=== PATIENT | female | born 1990 | race Caucasian/White ===

== ENCOUNTER 2021-07-23 00:03 | Observation (INO) ==
[2021-07-23] MEDS ORDERED: AMPICILLIN/SULBACTAM SOD 3,000 MG in 0.9 % SODIUM CHLORIDE 100 ML IV STA (01:37)
[2021-07-23] MEDS ORDERED: MoRPHine SULFATE 4 MG/ML 1 ML CARP\\VIAL IV PRN (01:39)
[2021-07-23] MEDS ORDERED: ONDANSETRON INJ 2 MG/ML 2 ML VIAL IV STA (01:39)
[2021-07-23] MEDS ORDERED: SODIUM CHLORIDE 0.9% 1000ML 1,000 ML IV SCH (01:45)
[2021-07-23 02:32] LABS: Basophils # (auto) 0.03 K/uL (0-0.2); Basophils % (auto) 0.2 %; Eosinophils # (auto) 0.43 K/uL (0-0.5); Eosinophils % (auto) 2.7 %; Hematocrit (blood only) 33.9 % (37-47); Hemoglobin 11.5 g/dL (12.0-16.0); Immature Granulocytes # (auto) 0.05 K/uL (0.00-0.02); Immature Granulocytes % (auto) 0.3 %; Lymphocytes # (auto) 2.97 K/uL (1.2-3.4); Lymphocytes % (auto) 18.6 %; Mean Corpuscular Hgb Conc 33.9 g/dL (32-36); Mean Corpuscular Volume 94.4 fL (80-100); Mean Platelet Volume 9.8 fL (7.4-10.4); Monocytes # (auto) 1.63 K/uL (0.11-0.59); Monocytes % (auto) 10.2 %; Neutrophils # (auto) 10.84 K/uL (1.4-6.5); Platelet Count 364 K/uL (130-400); RDW Coefficient of Variation 13.3 % (11.5-14.5); RDW Standard Deviation 46.1 fL (36.4-46.3); Red Blood Count 3.59 M/uL (4.2-5.4); White Blood Count 15.95 K/uL (4.8-10.8)
[2021-07-23 02:48] LABS: Pregnancy Test, Serum Negative (Negative)
[2021-07-23 03:08] LABS: Albumin Globulin Ratio 0.9 (0.9-2); Albumin Level 4.2 gm/dl (3.4-5.0); BUN Creatinine Ratio 9.3 (10-20); Bilirubin,Total 0.3 mg/dl (0.2-1); C Reactive Protein 2.18 mg/dl (0-0.29); Calcium 9.9 mg/dl (8.5-10.1); Creatinine Clr Calc Pharmacy 100.9 ml/min; Est GFR (African American) 120.9 ml/min; Est GFR (Non-African American) 104.3 ml/min; Globulin 4.9 gm/dl (2.5-4.0); Potassium 3.3 mmol/L (3.5-5.1); Total Protein 9.1 gm/dl (6.4-8.2)
[2021-07-23] MEDS ORDERED: OPTIRAY 320 100ml IV ONE (03:29)
[2021-07-23 05:21] LABS: Magnesium 2.2 mg/dl (1.8-2.4)
[2021-07-23] MEDS ORDERED: POTASSIUM CHLORIDE 40 MEQ in SODIUM CHLORIDE 0.9% 1000ML 1,000 ML IV ONE (05:30)
[2021-07-23] MEDS ORDERED: KETOROLAC TROMETHAMINE 15 MG/ML VIAL IV ONE (05:33)
--- NOTE | 2021-07-23 05:33 | History & Physical Report ---
Date of Service July 23, 2021 Assessment & Plan (1) Sepsis: Plan: Secondary to deep neck space infection secondary to odontogenic infection (Duane's angina) Failed outpatient treatment anxiety/mood disorder, stable off medications chronic anemia, hemoglobin at baseline chronic pain/drug dependence as per records on Subutex ongoing tobacco abuse Medical telemetry CS, Unasyn Watch out for airway obstruction. Oral maxillofacial surgery consultation Re: Duane's angina (ER provider already in touch with Dr. Ramos.) N.p.o. until patient seen by OMFS. Nicotine patch DVT prophylaxis. SCDs RE possible procedure Recommend pharmacologic anticoagulation with Lovenox 40 mg subcutaneous daily once bleeding risk is deemed to be minimal and negligible pending OMFS evaluation. Full code Patient sister requesting updates from providers. Ms. Glynn Alvarado, contact #[phone]. Text document was generated using [employer] voice recognition software. It may contain grammatical or spelling errors. Kindly contact undersigned for clarification of any documentation item in question. History of Present Illness Chief Complaint: Toothache, jaw swelling Primary Care Provider: Jose Ramon Todd History obtained from patient, family, and records. Medical history significant for anxiety/mood disorder, chronic anemia (baseline hemoglobin of 11), chronic pain/drug dependence as per records on Subutex, ongoing tobacco abuse. Last confinement February 2019 under Gynecology service for missed status post suction D&C. 2 months ago, patient referred by family dentist to oral surgeon from [facility] to extract all her carious teeth. Patient subsequently completed 1 week antibiotic course. 3 weeks ago, patient noted toothache on the left jaw. Outpatient x-ray done last week showed tooth remnant on the left jaw as per patient. Patient subsequently noted progressive jaw and chin swelling leading to difficulty in opening the mouth and swallowing. Patient denies headache, chest pain, S OB. No fever, some chills. Patient prescribed amoxicillin by family dentist and told to schedule an appointment with oral surgeon from [facility]. Patient brought to ER by sister for worsening symptoms. IV Unasyn given at the ER for odontogenic infection. Medical History as above Surgical History : D&C, nose reconstruction, bunion surgery, dental surgery Family History : Leukemia, DM, prostate cancer Personal/Social history : 1 pack daily, no EtOH intake, currently unemployed, past history of crystal meth use as per records Allergies Allergy/AdvReac Type Severity Reaction Status Date / Time naloxone Allergy Severe Anaphylaxis Verified 07/23/21 01:33 latex Allergy Mild Rash Verified 07/23/21 01:33 Home Medications Medication Instructions Recorded Confirmed Type buprenorphine HCl 8 mg sublingual 8 mg SUBLINGUAL BID 03/02/19 07/23/21 History tablet acetaminophen 325 mg tablet 325 mg PO Q6H PRN 03/04/19 07/23/21 History (Tylenol) ibuprofen 200 mg tablet (Advil) 200 mg PO QID PRN 03/04/19 07/23/21 History amoxicillin 500 mg capsule 500 mg PO TID 07/23/21 07/23/21 History Past Med/Surg History Medical History Anemia Anxiety and depression Bipolar disorder GERD (gastroesophageal reflux disease) History of drug dependence On Subutex currently. Pt reported h/o abuse of cocaine, xanax, marijuana, heroin. now sober x 1 year History of seizures last seizure at age 20 - believes r/t medications - does not follow w/ neuro Hypoglycemia Missed OCD (obsessive compulsive disorder) Osteoarthritis Surgical History History of bunionectomy Rt History of mandibular surgery History of tonsillectomy History of wisdom tooth extraction Status post correction of deviated nasal septum Status post excision of lipoma as a child - scalp Family History Mother Family history of diabetes mellitus Grandmother (Maternal) Family history of diabetes mellitus Grandfather (Maternal) Family history of diabetes mellitus Social History Smoking Status: Current every day smoker Tobacco Type: Cigarettes Cigarettes Per Day: 1ppd; Second Hand Exposure: Yes; Hx Alcohol Use: No Hx Substance Use: No Preferred Language: Hungarian Communication Ability: Effective Sheet Sewer Required: No Beliefs That Will Affect Care: None Current Living Situation: Alone Current Living Situation Comment: lives w/ fiance Feels Safe at Home: Yes Safety Concerns: Feels Safe At This Time Assistive Devices: Contacts Review of Systems Review of Systems: As per HPI, all 10 systems reviewed, all other ROS negative Physical Exam Physical Exam: GENERAL: uncomfortable, looks older than stated age, no respiratory distress SKIN: Pallor , warm HEENT: Pale palpebral conjunctivae, no ptosis, trismus, sublingual swelling NECK : Supple, , tender induration submandibular/submental area CHEST : CTA, no tenderness HEART : RRR, crisp systolic murmur best heard on left sternal border ABDOMEN: no distention, nontender EXTREMITIES : No LE swelling/tenderness, no other conspicuous deformities noted NEUROLOGIC : Coherent, no facial asymmetry, no other gross focality Results & Data Results & Data ([facility]) Vital Signs (Past 12 Hours) Vital Signs Temp Pulse Resp BP Pulse Ox 07/23/21 04:30 88 13 114/76 98 07/23/21 04:00 86 28 H 121/79 97 07/23/21 03:47 84 123/84 98 07/23/21 03:00 75 16 121/91 99 07/23/21 02:30 93 H 18 127/80 98 07/23/21 01:30 96 H 18 129/88 98 07/23/21 01:13 102 H 18 169/109 H 99 07/23/21 00:09 36.6 C 106 H 18 154/88 H 100 Laboratory Results Laboratory Results WBC 15.95 K/uL (4.8-10.8) H 07/23/21 01:52 RBC 3.59 M/uL (4.2-5.4) L 07/23/21 01:52 Hgb 11.5 g/dL (12.0-16.0) L 07/23/21 01:52 Hct 33.9 % (37-47) L 07/23/21 01:52 MCV 94.4 fL (80-100) 07/23/21 01:52 MCH 32.0 pg (25-34) 07/23/21 01:52 MCHC 33.9 g/dL (32-36) 07/23/21 01:52 RDW Std Deviation 46.1 fL (36.4-46.3) 07/23/21 01:52 RDW Coeff of Lizeth 13.3 % (11.5-14.5) 07/23/21 01:52 Plt Count 364 K/uL (130-400) 07/23/21 01:52 MPV 9.8 fL (7.4-10.4) 07/23/21 01:52 Immature Gran % (Auto) 0.3 % 07/23/21 01:52 Neut % (Auto) 68.0 % 07/23/21 01:52 Lymph % (Auto) 18.6 % 07/23/21 01:52 [place] % (Auto) 10.2 % 07/23/21 01:52 Eos % (Auto) 2.7 % 07/23/21 01:52 Baso % (Auto) 0.2 % 07/23/21 01:52 Neut # (Auto) 10.84 K/uL (1.4-6.5) H 07/23/21 01:52 Lymph # (Auto) 2.97 K/uL (1.2-3.4) 07/23/21 01:52 Lenoir # (Auto) 1.63 K/uL (0.11-0.59) H 07/23/21 01:52 Eos # (Auto) 0.43 K/uL (0-0.5) 07/23/21 01:52 Baso # (Auto) 0.03 K/uL (0-0.2) 07/23/21 01:52 Immature Gran # (Auto) 0.05 K/uL (0.00-0.02) H 07/23/21 01:52 ESR 59 mm/hr (0-20) H 07/23/21 01:52 Sodium 137 mmol/L (136-145) 07/23/21 01:52 Potassium 3.3 mmol/L (3.5-5.1) L 07/23/21 01:52 Chloride 103 mmol/L (98-107) 07/23/21 01:52 Carbon Dioxide 27 mmol/L (21-32) 07/23/21 01:52 Anion Gap 7.0 (3-11) 07/23/21 01:52 BUN 7 mg/dl (7-18) 07/23/21 01:52 Creatinine 0.77 mg/dl (0.6-1.2) 07/23/21 01:52 Est Cr Clr Drug Dosing 100.9 ml/min 07/23/21 01:52 Est GFR ( Amer) 120.9 ml/min 07/23/21 01:52 Est GFR (Non-Af Amer) 104.3 ml/min 07/23/21 01:52 BUN/Creatinine Ratio 9.3 (10-20) L 07/23/21 01:52 Glucose 98 mg/dl (70-99) 07/23/21 01:52 Lactate 0.6 mmol/L (0.4-2.0) 07/23/21 03:46 Calcium 9.9 mg/dl (8.5-10.1) 07/23/21 01:52 Magnesium 2.2 mg/dl (1.8-2.4) 07/23/21 01:52 Total Bilirubin 0.3 mg/dl (0.2-1) 07/23/21 01:52 AST 15 U/L (15-37) 07/23/21 01:52 ALT 16 U/L (12-78) 07/23/21 01:52 Alkaline Phosphatase 93 U/L (45-117) 07/23/21 01:52 C-Reactive Protein 2.18 mg/dl (0-0.29) H 07/23/21 01:52 Total Protein 9.1 gm/dl (6.4-8.2) H 07/23/21 01:52 Albumin 4.2 gm/dl (3.4-5.0) 07/23/21 01:52 Globulin 4.9 gm/dl (2.5-4.0) H 07/23/21 01:52 Albumin/Globulin Ratio 0.9 (0.9-2) 07/23/21 01:52 HCG, Qual Negative (Negative) 07/23/21 01:52 COVID-19 Eval Order Covid19 at [facility] 07/23/21 01:55 SARS-CoV-2 (PCR) NEGATIVE (Negative) 07/23/21 01:55 Diagnostic Findings Soft tissue neck CT initial read: Complex, septated peripheral enhancing fluid in the submental space extending into the floor the neck, likelyloculated abscess. Diffuse superficial edema around the mandible and inferiorly, compatible with Anjana dwig angina. Bilateral mildlyprominent cervical lymph nodes, presumed reactive. No other abscess.
[2021-07-23] MEDS ORDERED: KETOROLAC TROMETHAMINE 15 MG/ML VIAL IV PRN (05:38)
[2021-07-23] MEDS: NICOTINE 21 MG/24 HR TDSY TD SCH (05:54)
[2021-07-23] MEDS ORDERED: ACETAMINOPHEN 1000 MG/100 ML IV IV PRN (06:10)
[2021-07-23] MEDS ORDERED: PROMETHAZINE HCL 12.5 MG in SODIUM CHLORIDE 0.9% 50 ML IV PRN ×2 (07:03→12:16)
[2021-07-23] MEDS ORDERED: AMPICILLIN/SULBACTAM CONSULT ACTIVE PRN (07:39)
--- NOTE | 2021-07-23 08:01 | CT Scan Report ---
CT SCAN OF THE NECK WITH IV CONTRAST CLINICAL HISTORY: Facial/dental infection. Reported history of numerous recent dental extractions. COMPARISON STUDY: No priors. TECHNIQUE: Following the IV administration of 93 cc of Optiray 320, CT scan of the soft tissues of th e neck was performed from the skull base to the upper chest. Images are reviewed in the axial, sagitt al, and coronal planes. IV contrast was administered without complication. A dose lowering techniqu e was utilized adhering to the principles of ALARA. CT DOSE: 371.28 mGy.cm FINDINGS: Soft tissues: There is diffuse soft tissue edema is seen overlying the mandible extending the submand ibular region. There is a peripherally enhancing multiloculated fluid collection in the submental reg ion on image #273 which measures approximately 2.5 x 3 x 3 cm. A more inferiorly located loculation o n the right on image #268 measures 1.7 x 0.6 cm. Mild infiltration is seen throughout the soft tissue s of the neck bilaterally extending to the level of the thoracic inlet. There is also infiltration of the sublingual soft tissues, left greater than right. Piercings of the tongue and right nostril are noted. Pharynx: The patient is edentulous. The pharyngeal soft tissues are grossly unremarkable. The pharyng eal airway is patent. There is no evidence of mass lesion. The vocal cords are symmetric. The parapha ryngeal fat is well maintained. The prevertebral/retropharyngeal soft tissues are within normal limit s. The epiglottis is normal. Lymphadenopathy: There are numerous mildly enlarged cervical and submandibular lymph nodes. A right s ubmandibular node on image #247 measures 1.8 x 1.1 cm. There are shotty supraclavicular and left subp ectoral lymph nodes. Thyroid: The thyroid gland is mildly enlarged and heterogeneous. Salivary glands: The parotid and submandibular glands are within normal limits. Brain parenchyma: The visualized brain parenchyma at the skull base is normal in appearance. Vascular structures: The carotid arteries and jugular veins are patent bilaterally. Skeletal structures: Imaged portions of the calvarium at the skull base are within normal limits. The cervical spine appears intact. There is periostitis seen involving the undersurface of the left ante rior mandible on axial image #261. Orbits: The bony orbits are intact. Orbital contents are normal as imaged. Sinuses and mastoids: Postoperative change is seen involving the maxillary antra. There is mild mucos al thickening with air-fluid level seen in the left maxillary antrum. Trace mucosal thickening is see n within the right maxillary antrum and ethmoid sinuses. The mastoid air cells are well pneumatized. Lung apices: Emphysematous change is noted. Mild patchy groundglass change is seen at the apices. IMPRESSION: 1. Extensive superficial and deep soft tissue edema is seen overlying the mandible extending into the submental/submandibular space and throughout the neck. This is typical for cellulitis. 2. There is a complex multiloculated an peripherally enhancing fluid collection centered in the subme ntal space which extends to the floor of the mouth and into the neck. This is typical for abscess. 3. There is diffuse edema around this collection which involves the submental and sublingual space. L udwig's angina is not excluded. 4. There is periostitis seen involving the undersurface of the left anterior mandible. This is locate d adjacent to the inflammatory process/infection, and osteomyelitis is not excluded. 5. The airway appears patent. 6. Numerous mildly enlarged lymph nodes throughout the neck and upper chest are likely reactive. Foll ow-up to resolution is recommended. 7. The jugular veins are patent. 8. Emphysema. ACT 112: Negative or not required by law. Electronically signed by: Titus Marquez M.D. 07/23/2021 8:00 AM
[2021-07-23] MEDS ORDERED: CONSULT PHARMACY SCH (09:00)
[2021-07-23] MEDS: IBUPROFEN 200 MG TAB PO PRN ×2 (09:41→20:57)
[2021-07-23] MEDS: buprenorphine HCL 8 MG SUBL SL SCH ×2 (09:41→20:55)
[2021-07-23] MEDS: AMPICILLIN/SULBACTAM SOD 3,000 MG in 0.9 % SODIUM CHLORIDE 100 ML IV SCH ×3 (09:42→20:55)
--- NOTE | 2021-07-23 10:50 | Oral/Maxillofacial Consult ---
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 Ackerman in April 2021--having problems since. She called Dr Ackerman and was told they can`t see her until later in the week Oral Exam: Finding--irregular lower ridge from recent extraction. Had swelling lower left side she feels a loose bone in this area. There is subperiosteal swelling in the lateral left lower ridge area. Soft tissue: swelling floor of the mouth, chin, lips and face tongue, hard/soft palate All WNL Generalized edema --posterior pharyngeal area TMJ exam: no able to determine due to pain upon movement of the jaw Head/Neck exam: Swollen submental area, FROM, Able to extend and flex neck w/o difficulty, no masses, no abnormalities, no airway issues, no evidence of sleep apnea. Treatment Plan: Set up with general anesthesia in hospital due to complexity of the procedure Extraoral I&D submental area and floor of the mouth Debridement of the left posterior lower alveolar ridge for removal of necrotic bone I reviewed the treatment plan and consent with the patient. Understanding was expressed. Time was given for questions regarding the surgery, risks and post op care. Discussed alternative to treatment--procedure as planned, Do not do surgery Risks discussed: Bleeding,Pain,swelling,infection, delayed healing, nerve injury to face,lips,tongue,chin area which could be permanent (rare). Possible osteomyelitics TMJ, jaw stiffness, ear pain (referred). 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 Follow up care reviewed: rinsing, follow up care with Dr Ramos. diet=[id number] dental. Discussed activity level, driving/work while on Rx pain Meds. Surgery to be set today at 11:30 in the OR Allergies Allergy/AdvReac Type Severity Reaction Status Date / Time naloxone Allergy Severe Anaphylaxis Verified 07/23/21 01:33 latex Allergy Mild Rash Verified 07/23/21 01:33 Home Medications Medication Instructions Recorded Confirmed Type buprenorphine HCl 8 mg sublingual 8 mg SUBLINGUAL BID 03/02/19 07/23/21 History tablet acetaminophen 325 mg tablet 325 mg PO Q6H PRN 03/04/19 07/23/21 History (Tylenol) ibuprofen 200 mg tablet (Advil) 200 mg PO QID PRN 03/04/19 07/23/21 History amoxicillin 500 mg capsule 500 mg PO TID 07/23/21 07/23/21 History Patient History Medical History (Updated 07/23/21 @ 10:48 by David Ramos DMD) Anemia Anxiety and depression Bipolar disorder GERD (gastroesophageal reflux disease) History of drug dependence On Subutex currently. Pt reported h/o abuse of cocaine, xanax, marijuana, heroin. now sober x 1 year History of seizures last seizure at age 20 - believes r/t medications - does not follow w/ neuro Hypoglycemia Missed OCD (obsessive compulsive disorder) Osteoarthritis Surgical History History of bunionectomy Rt History of mandibular surgery History of tonsillectomy History of wisdom tooth extraction Status post correction of deviated nasal septum Status post excision of lipoma as a child - scalp Family History Mother Family history of diabetes mellitus Grandmother (Maternal) Family history of diabetes mellitus Grandfather (Maternal) Family history of diabetes mellitus Social History Smoking Status: Current every day smoker Tobacco Type: Cigarettes Cigarettes Per Day: 1ppd; Second Hand Exposure: Yes; Hx Alcohol Use: No Hx Substance Use: No Preferred Language: Palauan Communication Ability: Effective Manager Water Wastewater Required: No Beliefs That Will Affect Care: None Current Living Situation: Alone Current Living Situation Comment: lives w/ fiance Feels Safe at Home: Yes Safety Concerns: Feels Safe At This Time Assistive Devices: Contacts Results & Data ([facility]) Vital Signs (Past 12 Hours) Vital Signs Temp Pulse Pulse Resp BP BP Pulse Ox 07/23/21 07:59 37 C 78 18 109/72 97 07/23/21 07:58 71 07/23/21 07:42 37.0 C 78 18 109/72 97 07/23/21 06:32 117/65 97 07/23/21 04:30 88 13 114/76 98 07/23/21 04:00 86 28 H 121/79 97 07/23/21 03:47 84 123/84 98 07/23/21 03:00 75 16 121/91 99 07/23/21 02:30 93 H 18 127/80 98 07/23/21 01:30 96 H 18 129/88 98 07/23/21 01:13 102 H 18 169/109 H 99 07/23/21 00:09 36.6 C 106 H 18 154/88 H 100 PG Care Time/CCT Total # of Minutes Spent Total Time Spent with Patient: Total time spent is greater than 50% in coordination of care (as documented) at patient's floor/unit and/or counseling patient: Coding Level of Care Code 44307 Office/OBS Consult Lvl 3 Diagnoses Duane's angina syndrome K12.2 Osteomyelitis of mandible M27.2 Sepsis A41.9 History of drug dependence F19.21
[2021-07-23] MEDS ORDERED: LIDOCAINE 2% 2 ML VIAL/AMP(20MG/ML) INFIL ONE (10:51)
[2021-07-23] MEDS ORDERED: MIDAZOLAM HCL 1 MG/ML 2ML VIAL ONE (10:51)
[2021-07-23] MEDS ORDERED: PROPOFOL IV EMULSION 10 MG/ML 20 ML VIAL IV ONE (10:51)
[2021-07-23] MEDS ORDERED: fentaNYL citrate 100 MCG/2 ML VIAL ONE ×2 (10:51→13:01)
[2021-07-23] MEDS ORDERED: DEXAMETHASONE SOD INJ 4 MG/ML VIAL ONE (10:51)
[2021-07-23] MEDS ORDERED: ONDANSETRON INJ 2 MG/ML 2 ML VIAL ONE (10:51)
--- NOTE | 2021-07-23 11:26 | Anesthesiology Consultation ---
Date of Service July 23, 2021 Assessment & Plan Chart Review Chart Review: Acceptable Risk for Surgery and Patient NOT seen in Pre Admission Testing Consults Requested none ASA ASA3 Proposed Anesthesia Anesthesia Type: General Risk / Benefits Reviewed With: PT / POA / Parent / Guardian, Accepts Plan and Informed Consent Obtained Additional Comments: covid test negative History Surgery Operation Date: 07/23/21 10:25 Proposed Procedures p Incision and Drainage Mouth Abcess, Debridement of Necrotic bone - David Ramos, DMD Height/Weight Height: 5 ft 6 in Weight: 63.503 kg Allergies Allergy/AdvReac Type Severity Reaction Status Date / Time naloxone Allergy Severe Anaphylaxis Verified 07/23/21 01:33 latex Allergy Mild Rash Verified 07/23/21 01:33 Medications Home Medications Medication Instructions Recorded Confirmed Last Taken buprenorphine HCl 8 mg sublingual 8 mg SUBLINGUAL BID 03/02/19 07/23/21 07/22/21 tablet acetaminophen 325 mg tablet 325 mg PO Q6H PRN 03/04/19 07/23/21 Unknown (Tylenol) ibuprofen 200 mg tablet (Advil) 200 mg PO QID PRN 03/04/19 07/23/21 Unknown amoxicillin 500 mg capsule 500 mg PO TID 07/23/21 07/23/21 Unknown Active Medications Generic Name Dose Route Start Last Admin Trade Name Freq PRN Reason Stop Dose Admin Acetaminophen 1,000 mg 07/23/21 06:10 07/23/21 07:34 Acetaminophen 1000 Mg/100 Ml Iv IV 07/26/21 06:09 1,000 mg Q8H PRN Administration pain/fever Buprenorphine HCl 8 mg 07/23/21 09:00 07/23/21 09:41 Buprenorphine Hcl 8 Mg Subl SL 08/22/21 08:59 8 mg BID LAKISHA Administration Ampicillin Sodium/Sulbactam 108 mls @ 216 mls/hr 07/23/21 08:00 07/23/21 10:14 Sodium 3,000 mg/ Sodium IV 08/02/21 01:59 Infused Chloride Q6H LAKISHA Infusion Ibuprofen 200 mg 07/23/21 07:03 07/23/21 09:41 Ibuprofen 200 Mg Tab PO 08/22/21 07:02 200 mg QID PRN Administration Pain Nicotine 21 mg 07/23/21 05:45 07/23/21 05:54 Nicotine 21 Mg/24 Hr Tdsy TD 08/22/21 05:44 21 mg QAM LAKISHA Administration Past Medical History Medical History Anemia Anxiety and depression Bipolar disorder GERD (gastroesophageal reflux disease) History of drug dependence On Subutex currently. Pt reported h/o abuse of cocaine, xanax, marijuana, heroin. now sober x 1 year History of seizures last seizure at age 20 - believes r/t medications - does not follow w/ neuro Hypoglycemia Missed OCD (obsessive compulsive disorder) Osteoarthritis Exercise / Class Metabolic Activity II 4-5 Yardwork/Stairs/Walk up hill Past Family History Family History Mother Family history of diabetes mellitus Grandmother (Maternal) Family history of diabetes mellitus Grandfather (Maternal) Family history of diabetes mellitus Past Surgical History Surgical History History of bunionectomy Rt History of mandibular surgery History of tonsillectomy History of wisdom tooth extraction Status post correction of deviated nasal septum Status post excision of lipoma as a child - scalp Past Anesthesia History No Hx of Anesthesia Complications and No Family Hx of Anesthesia Complications History of PONV No Hx of PONV and No Hx of Motion Sickness Social History Smoking Status: Current every day smoker tobacco type: cigarettes Smoking cigarettes per day: 1ppd Hx Alcohol Use: No Hx Substance Use: No substance use type: former substance user Physical Exam Vital Signs Last Vital Signs Temp 37 C 07/23/21 07:59 Pulse 78 07/23/21 07:59 Resp 18 07/23/21 07:59 BP 109/72 07/23/21 07:59 Pulse Ox 97 07/23/21 07:59 Testing Laboratory Results 07/23/21 01:52 07/23/21 01:52
[2021-07-23] MEDS ORDERED: TRIAMCINOLONE ACET 0.1% OINT 15 GM TUBE ONE (11:35)
[2021-07-23] MEDS ORDERED: CHLORHEXIDINE GLUCONATE 0.12% 480 ML ONE (11:35)
[2021-07-23] MEDS ORDERED: BUPIVACAINE/EPINEPHRINE 0.5% 1:200,000 1.8 ML CARP ONE (11:35)
[2021-07-23] MEDS ORDERED: ATROPINE SULFATE 0.1 MG/ML 10ML SYR IV PRN (12:16)
[2021-07-23] MEDS ORDERED: ONDANSETRON INJ 2 MG/ML 2 ML VIAL IV PRN (12:16)
[2021-07-23] MEDS ORDERED: ePHEDrine sulfate 50 MG/ML AMP IV PRN (12:16)
[2021-07-23] MEDS ORDERED: fentaNYL citrate 100 MCG/2 ML VIAL IV PRN (12:16)
[2021-07-23] MEDS ORDERED: FLUMAZENIL 0.1 MG/1 ML 10 ML VIAL IV PRN (12:16)
[2021-07-23] MEDS ORDERED: KETAMINE 50 MG/5 ML SYRINGE ONE (12:50)
--- NOTE | 2021-07-23 13:23 | Communication Note ---
Date of Service: July 23, 2021 Patient was seen and examined this morning. Continues to have a persistent jaw discomfort. Remains afebrile. Leukocytosis noted today. Hemodynamically doing okay. Awaiting OMFS input. Plan to go to the OR later today. Denies feeling SOB, chest pain or wheezing. Will continue with Unasyn.
[2021-07-23] MEDS ORDERED: HYDROmorphone INJ 0.5 MG/0.5 ML SYR IV PRN ×2 (13:38→14:15)
[2021-07-23] MEDS ORDERED: HYDROmorphone INJ 1 MG/ML SYRINGE ONE ×2 (13:39→14:07)
--- NOTE | 2021-07-23 13:51 | Operative Report ---
PG Post Operative Report Pre & Post Diagnosis Operation Date: 07/23/21 10:25 Pre-Op Diagnosis: Acute facial swelling Post-Op Diagnosis: Submental infection, Nectrotic bone left jaw I identified the patient and participated in the time-out.: Yes Procedure Operation Date: 07/23/21 10:25 Actual Procedures p Incision and Drainage Submental Infection, Debridement of Necrotic Bone Left Jaw(Not Applicable) - David Ramos DMD Surgeon David Ramos DMD Broadband Technician none Estimated Blood Loss 10 Findings Consistent with Post-Op Diagnosis infected submandibular and submental area left side Specimens necrotic bone left lower jaw I&D chin area Drains Eren Smiley Anesthesia Type General Complications none Indications acute facila infection Description of Procedure Actual Procedures p Incision and Drainage Submental and Submandibular Abscess; Removal of loose necrotic bone left lower jaw ridge (Not Applicable) - David Ramos DMD Once cleared for surgery general anesthesia was achieved, the eyes were protected by the anesthesia dept criteria. A time out was take for patient ID, antibiotics, equipment and position verification once all agreed the procedure began. Local anesthesia using Marcaine with a vasoconstrictor ( 1.8 ml per site) given into left inferior alveolar nerve A throat pack was placed after the oral cavity was irrigated with saline. Once a surgical level of anesthesia was obtained and the local anesthesia was given time for the blocks the surgery was started. I turned my attention to the infection which was located in the left floor of the mouth and submental area. The tongue was elevated and there was also swelling associated with the left alveolar ridge ( see CT scan report) Incision and Drainage Using a 15 blade an incision was made medial to the alveolar ridge and lateral to the duct of the submandibular gland. Once the incision was made a lot of pus extruded from the site. This drainage was cultured for anaerobic and aerobic bacteria. A curved hemostat was carefully placed into the infected space along the medial side of the lower jaw and into the submental space. Some further drainage was now allowed to escape. I palpated the chin and submental area and in the must fluctuant site a 15 blade was used to establish drainage. About 10 cc of pus was expressed. The small hemostat was placed and opened a few times to break up any pockets of pus. For the most part the tissues were very hard w/o pus. The area was irrigated with at least 100 ml of NS solution. I large Wallback was placed from the left submandibular/floor of mouth site and exited in the chin midline incision. The drain was sutured with a 3-0 nylon. I now turned my attention to remove the # 28 tooth. Debridement of left necrotic and irregular ridge form left side. The full thick Muco-periosteal flap was made on the on the irregular ridge from the retromolar pad to the lower midline. The flap was reflected very wide to expose the the subperiosteal space and sublingual space. The bone was grossly irregular with sharp bone projection and chronically infected tissue. The rogue was used to remove bone, The file was used to smooth the bone, the mental nerve was intact, there was a large amount of granulation tissues that was removed I irrigated the site and closed the incision with a 2-0 chromic. Once the case was completed I inspected the sites to insure all bleeding was controlled. I removed the throat pack and suctioned the throat. A left gauze pressure dressings were placed. I chin dressing was placed All instrument and sponge count was correct. the patient was allowed to awake from the anesthesia. Once full awake the anesthesia tube was removed and the patient was taken to the recovery room with all vital sign stable. The patient tolerated the surgery very well. I will follow the patient in my office, Rx and instructions will be given upon discharge. drain to be removed based on response and functioning. I attest to the content of the Intraoperative Record and any orders documented therein. Any exceptions are noted below.
--- NOTE | 2021-07-23 14:27 | Anesthesiology Progress Note ---
Date of Service July 23, 2021 Anesthesia Post Procedure Vital Signs Vital Signs: Temp Pulse Pulse Pulse Pulse Resp BP 07/23/21 14:20 83 12 07/23/21 14:10 80 12 07/23/21 14:00 100 H 13 07/23/21 13:50 116 H 22 07/23/21 13:40 127 H 20 07/23/21 13:32 37.0 C 100 H 18 07/23/21 11:55 36.8 C 75 20 07/23/21 11:42 36.7 C 79 16 07/23/21 07:59 37 C 78 18 07/23/21 07:58 71 07/23/21 07:42 37.0 C 78 18 07/23/21 06:32 117/65 07/23/21 04:30 88 13 114/76 07/23/21 04:00 86 28 H 121/79 07/23/21 03:47 84 123/84 07/23/21 03:00 75 16 121/91 07/23/21 02:30 93 H 18 127/80 07/23/21 01:30 96 H 18 129/88 07/23/21 01:13 102 H 18 169/109 H 07/23/21 00:09 36.6 C 106 H 18 154/88 H BP Pulse Ox 07/23/21 14:20 131/88 95 07/23/21 14:10 130/84 98 07/23/21 14:00 138/93 100 07/23/21 13:50 156/98 H 91 07/23/21 13:40 176/106 H 100 07/23/21 13:32 172/120 H 100 07/23/21 11:55 134/82 100 07/23/21 11:42 120/81 99 07/23/21 07:59 109/72 97 07/23/21 07:58 07/23/21 07:42 109/72 97 07/23/21 06:32 97 07/23/21 04:30 98 07/23/21 04:00 97 07/23/21 03:47 98 07/23/21 03:00 99 07/23/21 02:30 98 07/23/21 01:30 98 07/23/21 01:13 99 07/23/21 00:09 100 Pain Intensity Jaw: Pain Intensity: 7 Transfer of Care Handoff Completed per policy Notes Mental Status: alert / awake / arousable Patient Amnestic to Procedure: Yes Nausea / Vomiting: adequately controlled Pain: adequately controlled Airway Patency, RR, SpO2: stable & adequate BP & HR: stable & adequate Hydration State: stable & adequate Anesthetic Complications: no major complications apparent
[2021-07-23] MEDS: POTASSIUM CHLORIDE 40 MEQ in D5W AND NSS 1,000 ML IV SCH (15:24)
--- NOTE | 2021-07-23 18:53 | Emergency Department Note ---
ED Visit Note Physician Insulation Mechanic Supervision Note: I interviewed and examined the patient. Discussed with Anand Daily PA-C and agree with findings and plan as documented in the note. The patient was evaluated and noted to have significant swelling of the lower mandible and submental space. She is tender with mild erythema and induration. The subglottal tissue is raised. CT imaging was reviewed. Patient did receive IV analgesia, antibiotics and consultation with [facility], Dr. Ramos was placed. Patient and her family member were updated to the findings and plan. Consultation with the internal medicine service for admission was also placed. The patient agreed with the plan. Documented By: Darlene Mckeon MD .
[2021-07-23] MEDS: ACETAMINOPHEN 325 MG TAB PO PRN (18:57)
--- NOTE | 2021-07-23 21:13 | Emergency Department Note ---
History of Present Illness General Chief complaint: Dental/Oral Stated complaint: FACE SWELLED AND DRAINAGE Time Seen by Provider: 07/23/21 01:30 History of Present Illness Maximum Pain Intensity: 6 This is a 31-year-old female presenting to the emergency department for evaluation of facial pain and swelling worsening over the past 10 days. The patient had her teeth removed by Dr. Hawkins/Tyron's office in April, roughly 2 months ago. She does describe waxing and waning infection symptoms and has had difficulty getting in with their office. The patient has been off and on antibiotics for the past 2 months, and finally did see her primary care physician about a week and a half ago. She was started on amoxicillin and referred formally back to her oral surgeon's office, but has not scheduled an appointment as the office "won't see me". The patient has developed significant swelling of her face without fever. She is having difficulty eating and drinking because of the swelling. She rates the overall discomfort a 9/10. Home Medications Medication Instructions Recorded Confirmed Type buprenorphine HCl 8 mg sublingual 8 mg SUBLINGUAL BID 03/02/19 07/23/21 History tablet acetaminophen 325 mg tablet 325 mg PO Q6H PRN 03/04/19 07/23/21 History (Tylenol) ibuprofen 200 mg tablet (Advil) 200 mg PO QID PRN 03/04/19 07/23/21 History amoxicillin 500 mg capsule 500 mg PO TID 07/23/21 07/23/21 History Allergies Allergy/AdvReac Type Severity Reaction Status Date / Time naloxone Allergy Severe Anaphylaxis Verified 07/23/21 01:33 latex Allergy Mild Rash Verified 07/23/21 01:33 Past Med/Surg History Medical History Anemia Anxiety and depression Bipolar disorder GERD (gastroesophageal reflux disease) History of drug dependence On Subutex currently. Pt reported h/o abuse of cocaine, xanax, marijuana, heroin. now sober x 1 year History of seizures last seizure at age 20 - believes r/t medications - does not follow w/ neuro Hypoglycemia Missed OCD (obsessive compulsive disorder) Osteoarthritis Surgical History History of bunionectomy Rt History of mandibular surgery History of tonsillectomy History of wisdom tooth extraction Status post correction of deviated nasal septum Status post excision of lipoma as a child - scalp Family History Mother Family history of diabetes mellitus Grandmother (Maternal) Family history of diabetes mellitus Grandfather (Maternal) Family history of diabetes mellitus Social History Smoking Status: Current every day smoker Tobacco Type: Cigarettes Cigarettes Per Day: 1ppd; Second Hand Exposure: Yes; Hx Alcohol Use: No Hx Substance Use: No Preferred Language: Ethiopian Communication Ability: Effective [employer] Director Required: No Beliefs That Will Affect Care: None Current Living Situation: Alone Current Living Situation Comment: lives w/ fiance Feels Safe at Home: Yes Safety Concerns: Feels Safe At This Time Assistive Devices: Contacts Review of Systems A total of 10 systems reviewed and were otherwise negative Physical Exam Vital Signs Vital Signs - 24 hr 07/23/21 00:09 07/23/21 01:13 07/23/21 01:30 Temperature 36.6 C Temperature Source Temporal Artery Scan Pulse Rate 106 H 102 H 96 H Pulse Rate from SpO2 Sensor Respiratory Rate 18 18 18 Respiratory Effort / Characteristics Non-Labored Spontaneous Respiratory Depth Normal Respiratory Pattern Regular Blood Pressure 154/88 H 169/109 H 129/88 Blood Pressure Mean 110 129 101 Pulse Oximetry 100 99 98 Oxygen Delivery Method Room Air Sepsis Recent Fever Within 48 Hours No Sepsis New/Unexplained Change in Mental Status No Sepsis Action Taken by Nursing No Action Required 07/23/21 02:30 07/23/21 03:00 07/23/21 03:47 Temperature Temperature Source Pulse Rate 93 H 75 84 Pulse Rate from SpO2 Sensor 83 Respiratory Rate 18 16 Respiratory Effort / Characteristics Respiratory Depth Respiratory Pattern Blood Pressure 127/80 121/91 123/84 Blood Pressure Mean 95 101 97 Pulse Oximetry 98 99 98 Oxygen Delivery Method Sepsis Recent Fever Within 48 Hours Sepsis New/Unexplained Change in Mental Status Sepsis Action Taken by Nursing 07/23/21 04:00 07/23/21 04:30 Temperature Temperature Source Pulse Rate 86 88 Pulse Rate from SpO2 Sensor 86 86 Respiratory Rate 28 H 13 Respiratory Effort / Characteristics Respiratory Depth Respiratory Pattern Blood Pressure 121/79 114/76 Blood Pressure Mean 93 88 Pulse Oximetry 97 98 Oxygen Delivery Method Sepsis Recent Fever Within 48 Hours Sepsis New/Unexplained Change in Mental Status Sepsis Action Taken by Nursing VITALS: Vitals are noted on the nurse's note and reviewed by myself. Vital signs stable. GENERAL: White female who appears in moderate distress. She has profound swelling of the face inferior to the chin. MOUTH: Exam limited as patient has difficulty opening the mouth. She is handling her own secretions. Airway is patent. Tenderness under the tongue is noted. NECK: Profound edema underneath the chin identified. HEART: Regular rate and rhythm without murmurs gallops or rubs. LUNGS: Clear to auscultation bilaterally without wheezes, rales or rhonchi. No retractions or accessory muscle use. Course Administered Medications Acetaminophen (Acetaminophen 325 Mg Tab) 650 mg PO Q4H PRN PRN Reason: Pain or Fever Stop: 08/22/21 05:37 Last Admin: 07/23/21 18:57 Dose: 650 mg Documented by: [id number] Acetaminophen (Acetaminophen 1000 Mg/100 Ml Iv) 1,000 mg IV Q8H PRN PRN Reason: pain/fever Stop: 07/26/21 06:09 Last Admin: 07/23/21 07:34 Dose: 1,000 mg Documented by: [id number] Buprenorphine HCl (Buprenorphine Hcl 8 Mg Subl) 8 mg SL BID LAKISHA Stop: 08/22/21 08:59 Last Admin: 07/23/21 20:55 Dose: 8 mg Documented by: [id number] Admin: 07/23/21 09:41 Dose: 8 mg Documented by: [id number] Potassium Chloride 40 meq/ (Dextrose/Sodium Chloride) 1,020 mls @ 75 mls/hr IV .[id number] LAKISHA Stop: 08/22/21 09:59 Last Infusion: 07/23/21 16:14 Dose: 75 mls/hr Documented by: [id number] Admin: 07/23/21 15:24 Dose: 75 mls/hr Documented by: [id number] Ampicillin Sodium/Sulbactam Sodium 3,000 mg/ Sodium Chloride 108 mls @ 216 mls/hr IV Q6H LAKISHA Stop: 08/02/21 01:59 Last Admin: 07/23/21 20:55 Dose: 216 mls/hr Documented by: [id number] Infusion: 07/23/21 16:22 Dose: 0 mls/hr Documented by: [id number] Admin: 07/23/21 15:36 Dose: 216 mls/hr Documented by: [id number] Infusion: 07/23/21 10:14 Dose: 0 mls/hr Documented by: [id number] Admin: 07/23/21 09:42 Dose: 216 mls/hr Documented by: [id number] Ibuprofen (Ibuprofen 200 Mg Tab) 200 mg PO QID PRN PRN Reason: Pain Stop: 08/22/21 07:02 Last Admin: 07/23/21 20:57 Dose: 200 mg Documented by: [id number] Admin: 07/23/21 09:41 Dose: 200 mg Documented by: [id number] Miscellaneous (Remove Nicoderm Patch) 1 ea N/A DAILY@[id number] [facility] Stop: 08/22/21 08:58 Last Admin: 07/23/21 16:26 Dose: Not Given Documented by: [id number] Nicotine (Nicotine 21 Mg/24 Hr Tdsy) 21 mg TD QAM [facility] Stop: 08/22/21 05:44 Last Admin: 07/23/21 05:54 Dose: 21 mg Documented by: [id number] Discontinued Medications Bupivacaine HCl (Bupivacaine/Epinephrine 0.5% 1:200,000 1.8 Ml Carp) Confirm Administered Dose 10.8 ml .ROUTE .STK-MED ONE Stop: 07/23/21 11:36 Last Admin: 07/23/21 13:10 Dose: 4.2 ml Documented by: [id number] Chlorhexidine Gluconate (Chlorhexidine Gluconate 0.12% 480 Ml) Confirm Administered Dose 480 ml .ROUTE .STK-MED ONE Stop: 07/23/21 11:36 Last Admin: 07/23/21 12:45 Dose: 15 ml Documented by: [id number] Hydromorphone HCl (Hydromorphone Inj 1 Mg/Ml Syringe) Confirm Administered Dose 2 mg .ROUTE .STK-MED ONE Stop: 07/23/21 13:40 Last Increment: 07/23/21 13:54 Dose: 0.5 mg Documented by: [id number] Increment: 07/23/21 13:49 Dose: 0.5 mg Documented by: [id number] Increment: 07/23/21 13:44 Dose: 0.5 mg Documented by: [id number] Increment: 07/23/21 13:39 Dose: 0.5 mg Documented by: [id number] Hydromorphone HCl (Hydromorphone Inj 1 Mg/Ml Syringe) Confirm Administered Dose 1 mg .ROUTE .STK-MED ONE Stop: 07/23/21 14:08 Last Increment: 07/23/21 14:21 Dose: 0.5 mg Documented by: [id number] Increment: 07/23/21 14:14 Dose: 0.5 mg Documented by: [id number] Sodium Chloride (Nss 1000ml) 1,000 mls @ 999 mls/hr IV .Q1H1M LAKISHA Stop: 07/23/21 02:45 Last Infusion: 07/23/21 03:06 Dose: 0 mls/hr Documented by: [id number] Admin: 07/23/21 02:05 Dose: 999 mls/hr Documented by: [id number] Ampicillin Sodium/Sulbactam Sodium 3,000 mg/ Sodium Chloride 108 mls @ 200 mls/hr IV NOW STA; Protocol Stop: 07/23/21 02:09 Last Infusion: 07/23/21 02:38 Dose: 0 mls/hr Documented by: [id number] Admin: 07/23/21 02:05 Dose: 200 mls/hr Documented by: [id number] Potassium Chloride 40 meq/ (Sodium Chloride) 1,020 mls @ 250 mls/hr IV .Q4H5M ONE Stop: 07/23/21 09:34 Last Infusion: 07/23/21 09:40 Dose: 0 mls/hr Documented by: [id number] Admin: 07/23/21 05:58 Dose: 250 mls/hr Documented by: [id number] Ioversol (Optiray 320 100ml) 100 ml IV ONCE ONE Stop: 07/23/21 03:30 Last Admin: 07/23/21 03:29 Dose: 93 ml Documented by: [id number] Ketorolac Tromethamine (Ketorolac Tromethamine 15 Mg/Ml Vial) 15 mg IV NOW ONE Stop: 07/23/21 05:34 Last Admin: 07/23/21 05:55 Dose: 15 mg Documented by: [id number] Morphine Sulfate (Morphine Sulfate 4 Mg/Ml 1 Ml Carp\\Vial) 4 mg IV Q30M PRN PRN Reason: Pain Stop: 08/06/21 01:38 Last Admin: 07/23/21 02:14 Dose: 4 mg Documented by: [id number] Ondansetron HCl (Ondansetron Inj 2 Mg/Ml 2 Ml Vial) 4 mg IV NOW STA Stop: 07/23/21 01:40 Last Admin: 07/23/21 02:19 Dose: 4 mg Documented by: [id number] Triamcinolone Acetonide (Triamcinolone Acet 0.1% Oint 15 Gm Tube) Confirm Administered Dose 45 appln .ROUTE .STK-MED ONE Stop: 07/23/21 11:36 Last Admin: 07/23/21 13:17 Dose: 1 appln Documented by: [id number] Medical Decision Making Differential Diagnosis Differential diagnosis includes: Etiologies such as cellulitis, abscess, osteomyelitis, MRSA infection, DVT, necrotizing fasciitis, dermatitis, drug eruption, as well as others were entertained Laboratory Data Result diagrams: 07/23/21 01:52 07/23/21 01:52 Lab Results 07/23/21 07/23/21 07/23/21 Range/Units 01:52 01:52 01:52 WBC 15.95 H (4.8-10.8) K/uL RBC 3.59 L (4.2-5.4) M/uL Hgb 11.5 L (12.0-16.0) g/dL Hct 33.9 L (37-47) % MCV 94.4 (80-100) fL MCH 32.0 (25-34) pg MCHC 33.9 (32-36) g/dL RDW Std Deviation 46.1 (36.4-46.3) fL RDW Coeff of Lizeth 13.3 (11.5-14.5) % Plt Count 364 (130-400) K/uL MPV 9.8 (7.4-10.4) fL Immature Gran % (Auto) 0.3 % Neut % (Auto) 68.0 % Lymph % (Auto) 18.6 % [place] % (Auto) 10.2 % Eos % (Auto) 2.7 % Baso % (Auto) 0.2 % Neut # (Auto) 10.84 H (1.4-6.5) K/uL Lymph # (Auto) 2.97 (1.2-3.4) K/uL [place] # (Auto) 1.63 H (0.11-0.59) K/uL Eos # (Auto) 0.43 (0-0.5) K/uL Baso # (Auto) 0.03 (0-0.2) K/uL Immature Gran # (Auto) 0.05 H (0.00-0.02) K/uL ESR 59 H (0-20) mm/hr Sodium (136-145) mmol/L Potassium (3.5-5.1) mmol/L Chloride (98-107) mmol/L Carbon Dioxide (21-32) mmol/L Anion Gap (3-11) BUN (7-18) mg/dl Creatinine (0.6-1.2) mg/dl Est Cr Clr Drug Dosing ml/min Est GFR ( Amer) ml/min Est GFR (Non-Af Amer) ml/min BUN/Creatinine Ratio (10-20) Glucose (70-99) mg/dl Lactate Cancelled Calcium (8.5-10.1) mg/dl Magnesium (1.8-2.4) mg/dl Total Bilirubin (0.2-1) mg/dl AST (15-37) U/L ALT (12-78) U/L Alkaline Phosphatase (45-117) U/L C-Reactive Protein (0-0.29) mg/dl Total Protein (6.4-8.2) gm/dl Albumin (3.4-5.0) gm/dl Globulin (2.5-4.0) gm/dl Albumin/Globulin Ratio (0.9-2) HCG, Qual (Negative) COVID-19 Eval Order SARS-CoV-2 (PCR) (Negative) 07/23/21 07/23/21 07/23/21 Range/Units 01:52 01:52 01:55 WBC (4.8-10.8) K/uL RBC (4.2-5.4) M/uL Hgb (12.0-16.0) g/dL Hct (37-47) % MCV (80-100) fL MCH (25-34) pg MCHC (32-36) g/dL RDW Std Deviation (36.4-46.3) fL RDW Coeff of Lizeth (11.5-14.5) % Plt Count (130-400) K/uL MPV (7.4-10.4) fL Immature Gran % (Auto) % Neut % (Auto) % Lymph % (Auto) % [place] % (Auto) % Eos % (Auto) % Baso % (Auto) % Neut # (Auto) (1.4-6.5) K/uL Lymph # (Auto) (1.2-3.4) K/uL [place] # (Auto) (0.11-0.59) K/uL Eos # (Auto) (0-0.5) K/uL Baso # (Auto) (0-0.2) K/uL Immature Gran # (Auto) (0.00-0.02) K/uL ESR (0-20) mm/hr Sodium 137 (136-145) mmol/L Potassium 3.3 L (3.5-5.1) mmol/L Chloride 103 (98-107) mmol/L Carbon Dioxide 27 (21-32) mmol/L Anion Gap 7.0 (3-11) BUN 7 (7-18) mg/dl Creatinine 0.77 (0.6-1.2) mg/dl Est Cr Clr Drug Dosing 100.9 ml/min Est GFR ( Amer) 120.9 ml/min Est GFR (Non-Af Amer) 104.3 ml/min BUN/Creatinine Ratio 9.3 L (10-20) Glucose 98 (70-99) mg/dl Lactate Calcium 9.9 (8.5-10.1) mg/dl Magnesium 2.2 (1.8-2.4) mg/dl Total Bilirubin 0.3 (0.2-1) mg/dl AST 15 (15-37) U/L ALT 16 (12-78) U/L Alkaline Phosphatase 93 (45-117) U/L C-Reactive Protein 2.18 H (0-0.29) mg/dl Total Protein 9.1 H (6.4-8.2) gm/dl Albumin 4.2 (3.4-5.0) gm/dl Globulin 4.9 H (2.5-4.0) gm/dl Albumin/Globulin Ratio 0.9 (0.9-2) HCG, Qual Negative (Negative) COVID-19 Eval Order Covid19 at [facility] SARS-CoV-2 (PCR) (Negative) 07/23/21 07/23/21 Range/Units 01:55 03:46 WBC (4.8-10.8) K/uL RBC (4.2-5.4) M/uL Hgb (12.0-16.0) g/dL Hct (37-47) % MCV (80-100) fL MCH (25-34) pg MCHC (32-36) g/dL RDW Std Deviation (36.4-46.3) fL RDW Coeff of Lizeth (11.5-14.5) % Plt Count (130-400) K/uL MPV (7.4-10.4) fL Immature Gran % (Auto) % Neut % (Auto) % Lymph % (Auto) % [place] % (Auto) % Eos % (Auto) % Baso % (Auto) % Neut # (Auto) (1.4-6.5) K/uL Lymph # (Auto) (1.2-3.4) K/uL [place] # (Auto) (0.11-0.59) K/uL Eos # (Auto) (0-0.5) K/uL Baso # (Auto) (0-0.2) K/uL Immature Gran # (Auto) (0.00-0.02) K/uL ESR (0-20) mm/hr Sodium (136-145) mmol/L Potassium (3.5-5.1) mmol/L Chloride (98-107) mmol/L Carbon Dioxide (21-32) mmol/L Anion Gap (3-11) BUN (7-18) mg/dl Creatinine (0.6-1.2) mg/dl Est Cr Clr Drug Dosing ml/min Est GFR ( Amer) ml/min Est GFR (Non-Af Amer) ml/min BUN/Creatinine Ratio (10-20) Glucose (70-99) mg/dl Lactate 0.6 Calcium (8.5-10.1) mg/dl Magnesium (1.8-2.4) mg/dl Total Bilirubin (0.2-1) mg/dl AST (15-37) U/L ALT (12-78) U/L Alkaline Phosphatase (45-117) U/L C-Reactive Protein (0-0.29) mg/dl Total Protein (6.4-8.2) gm/dl Albumin (3.4-5.0) gm/dl Globulin (2.5-4.0) gm/dl Albumin/Globulin Ratio (0.9-2) HCG, Qual (Negative) COVID-19 Eval Order SARS-CoV-2 (PCR) NEGATIVE (Negative) Imaging Data Radiologist's Impression: Soft Tissue Neck CT 07/23/21 01:37 CT SCAN OF THE NECK WITH IV CONTRAST CLINICAL HISTORY: Facial/dental infection. Reported history of numerous recent dental extractions. COMPARISON STUDY: No priors. TECHNIQUE: Following the IV administration of 93 cc of Optiray 320, CT scan of the soft tissues of the neck was performed from the skull base to the upper chest. Images are reviewed in the axial, sagittal, and coronal planes. IV contrast was administered without complication. A dose lowering technique was utilized adhering to the principles of ALARA. CT DOSE: 371.28 mGy.cm FINDINGS: Soft tissues: There is diffuse soft tissue edema is seen overlying the mandible extending the submandibular region. There is a peripherally enhancing multiloculated fluid collection in the submental region on image #273 which measures approximately 2.5 x 3 x 3 cm. A more inferiorly located loculation on the right on image #268 measures 1.7 x 0.6 cm. Mild infiltration is seen throughout the soft tissues of the neck bilaterally extending to the level of the thoracic inlet. There is also infiltration of the sublingual soft tissues, left greater than right. Piercings of the tongue and right nostril are noted. Pharynx: The patient is edentulous. The pharyngeal soft tissues are grossly unremarkable. The pharyngeal airway is patent. There is no evidence of mass lesion. The vocal cords are symmetric. The parapharyngeal fat is well maintained. The prevertebral/retropharyngeal soft tissues are within normal l imits. The epiglottis is normal. Lymphadenopathy: There are numerous mildly enlarged cervical and submandibular lymph nodes. A right submandibular node on image #247 measures 1.8 x 1.1 cm. There are shotty supraclavicular and left subpectoral lymph nodes. Thyroid: The thyroid gland is mildly enlarged and heterogeneous. Salivary glands: The parotid and submandibular glands are within normal limits. Brain parenchyma: The visualized brain parenchyma at the skull base is normal in appearance. Vascular structures: The carotid arteries and jugular veins are patent bilaterally. Skeletal structures: Imaged portions of the calvarium at the skull base are within normal limits. The cervical spine appears intact. There is periostitis seen involving the undersurface of the left anterior mandible on axial image #261. Orbits: The bony orbits are intact. Orbital contents are normal as imaged. Sinuses and mastoids: Postoperative change is seen involving the maxillary antra. There is mild mucosal thickening with air-fluid level seen in the left maxillary antrum. Trace mucosal thickening is seen within the right maxillary antrum and ethmoid sinuses. The mastoid air cells are well pneumatized. Lung apices: Emphysematous change is noted. Mild patchy groundglass change is seen at the apices. IMPRESSION: 1. Extensive superficial and deep soft tissue edema is seen overlying the mandible extending into the submental/submandibular space and throughout the neck. This is typical for cellulitis. 2. There is a complex multiloculated an peripherally enhancing fluid collection centered in the submental space which extends to the floor of the mouth and into the neck. This is typical for abscess. 3. There is diffuse edema around this collection which involves the submental an d sublingual space. Duane's angina is not excluded. 4. There is periostitis seen involving the undersurface of the left anterior mandible. This is located adjacent to the inflammatory process/infection, and osteomyelitis is not excluded. 5. The airway appears patent. 6. Numerous mildly enlarged lymph nodes throughout the neck and upper chest are likely reactive. Follow-up to resolution is recommended. 7. The jugular veins are patent. 8. Emphysema. ACT 112: Negative or not required by law. Electronically signed by: Titus Marquez M.D. 07/23/2021 8:00 AM MDM Narrative Physical exam and history were performed. Nursing notes, EMR, and Medication List were personally reviewed. Patient appears to have profound swelling of her face primarily underneath her chin. This does seem to be secondary to dental origins. IV access was established and labs were obtained. The patient was given IV morphine, IV Zofran, and IV Unasyn. Blood cultures were gathered and the patient was sent to CT scan for further evaluation of her symptoms. Due to the impressive nature of her symptoms the case was discussed with my attending, Dr. Mckeon, who also evaluated the patient at bedside. The patient's blood work is as above and was reviewed. She does have an elevated white blood cell count of 15,000. She does not have a significant anemia or gross electrolyte imbalance. Sed rate and CRP are both elevated. She is not . Covid was performed and negative. CT scan was reviewed by myself and radiology and shows concerning signs of abscess and cellulitis consistent with Duane angina. The case was discussed with the oral maxillofacial specialist, Dr. Ramos, who will take the patient to the OR later this morning. Recommendation was for hospital admission, and I did discuss the case with the on-call hospitalist team. Please see the hospitalist and surgical notes for further patient care and disposition. The patient did remain in stable condition until the time of transfer to the floor. The chart was completed utilizing [employer] Speech Voice Recognition Software. Grammatical errors, random word insertions, pronoun errors, and incomplete sentences are an occasional consequence of this system due to software limitations, ambient noise, and hardware issues. Any formal questions or concerns about the content, text, or information contained within the body of this dictation should be directly addressed to the provider for clarification. . Impression & Plan Duane's angina syndrome, Osteomyelitis of mandible Discharge Plan Visit Data Chief Complaint: Dental/Oral Stated Complaint: FACE SWELLED AND DRAINAGE ED Provider: Darlene Mckeon ED Midlevel Provider: Anand Daily Discharge Problem: Duane's angina syndrome, Osteomyelitis of mandible Patient Disposition: Admitted As Inpatient Discharge Instructions Interventions: ED Discharge Assessment Last Done: 07/23/21 06:44
[2021-07-24] MEDS: AMPICILLIN/SULBACTAM SOD 3,000 MG in 0.9 % SODIUM CHLORIDE 100 ML IV SCH ×2 (01:42→07:35)
[2021-07-24] MEDS: ACETAMINOPHEN 325 MG TAB PO PRN ×2 (03:16→07:35)
[2021-07-24] MEDS: POTASSIUM CHLORIDE 40 MEQ in D5W AND NSS 1,000 ML IV SCH (05:17)
[2021-07-24 06:27] LABS: Eosinophils # (auto) 0.01 K/uL (0-0.5); Eosinophils % (auto) 0.1 %; Hematocrit (blood only) 29.6 % (37-47); Hemoglobin 9.8 g/dL (12.0-16.0); Immature Granulocytes # (auto) 0.03 K/uL (0.00-0.02); Immature Granulocytes % (auto) 0.3 %; Lymphocytes # (auto) 1.58 K/uL (1.2-3.4); Lymphocytes % (auto) 14.6 %; Mean Corpuscular Hemoglobin 31.2 pg (25-34); Mean Corpuscular Hgb Conc 33.1 g/dL (32-36); Mean Corpuscular Volume 94.3 fL (80-100); Mean Platelet Volume 9.8 fL (7.4-10.4); Monocytes # (auto) 1.02 K/uL (0.11-0.59); Monocytes % (auto) 9.4 %; Neutrophils % (auto) 75.6 %; Platelet Count 242 K/uL (130-400); RDW Coefficient of Variation 13.4 % (11.5-14.5); RDW Standard Deviation 46.1 fL (36.4-46.3); Red Blood Count 3.14 M/uL (4.2-5.4); White Blood Count 10.84 K/uL (4.8-10.8)
[2021-07-24 07:00] LABS: BUN Creatinine Ratio 14.8 (10-20); Calcium 8.9 mg/dl (8.5-10.1); Creatinine Clr Calc Pharmacy 141.3 ml/min; Est GFR (African American) 146.9 ml/min; Est GFR (Non-African American) 126.8 ml/min; Potassium 4.1 mmol/L (3.5-5.1)
[2021-07-24] MEDS: NICOTINE 21 MG/24 HR TDSY TD SCH (07:32)
[2021-07-24] MEDS: buprenorphine HCL 8 MG SUBL SL SCH (08:55)
--- NOTE | 2021-07-24 09:30 | Oral/Maxillofacial Progress Nt ---
Date of Service July 24 2021 Post Op infection evaluation day 1 The infected area is now responding very well. Swelling is decreasing and the tissue is healing well and much softer Good drainage is noted. Drain will be removed Thursday AM in my office Cultures pending. Infection has responded very well to the antibiotics and the I and D. I requested that the patient continue with massage, heat and wound care. At this time the area has responded well to treatment. I will Discharge Tiffanie this morning and Rx: oral Augmentin 875 x 20 Overall doing very well OK for D/C today I will see her ThursdayJul 26 in my office for follow up and drain removal Assessment & Plan Admission and Anticipated Discharge Date Admission Date: July 23, 2021 Results & Data ([facility]) Vital Signs (Past 12 Hours) Vital Signs Temp Pulse Pulse Resp BP Pulse Ox 07/24/21 07:38 36.8 C 70 18 104/67 96 07/24/21 02:54 36.5 C 63 18 125/77 93 07/23/21 23:32 60 07/23/21 23:18 36.7 C 57 L 18 124/76 96 PG Care Time/CCT Total # of Minutes Spent Total Time Spent with Patient: Total time spent is greater than 50% in coordination of care (as documented) at patient's floor/unit and/or counseling patient: Coding Level of Care Code 60986 Subseq Hosp Care Lvl 1
--- NOTE | 2021-07-24 17:07 | Hospitalist Progress Note ---
Date of Service July 24, 2021 delayed entry date of service noted above Assessment & Plan (1) Sepsis: Plan: Secondary to deep neck space infection secondary to odontogenic infection (Duane's angina) Failed outpatient treatment p Incision and Drainage Submental Infection, Debridement of Necrotic Bone Left Jaw(Not Applicable) - David Ramos, DMD improved with IV Unasyn discharged on PO Augmentin anxiety/mood disorder, stable off medications chronic anemia, hemoglobin at baseline chronic pain/drug dependence as per records on Subutex ongoing tobacco abuse DVT prophylaxis. SCDs RE possible procedure Full code dc home ff up with Dr. Ramos as scheduled Admission and Anticipated Discharge Date Admission Date: July 23, 2021 Subjective ff up for mandibular abscess, etc seen resting in bed, comfortable, sitting up in good spirits states she feels better overall minimal pain over the surgical site no problems with chewing, swallowing no fever/chills no chest pain, dyspnea, palpitations, dizziness no other symptoms states she is ready and would like to be discharged today Review of Systems Review of Systems: all noted and negative except for above Physical Exam Physical Exam: General- oriented x 3, not in distress, speaks in sentences with no effort or accessory muscle use Head- atraumatic Eyes- PERRL, EOMI, anicteric ENT- oropharynx clear minimal swelling of left jaw Neck- supple, no JVD, no adenopathy, no thyromegaly; carotids +2/2, no bruits appreciated Lungs- clear to auscultation bilaterally, no rales/wheezes Heart- normal rate, regular rhythm; no murmurs Abdomen- normal bowel sounds, nondistended, soft, nontender, no masses or hepatosplenomegaly Extremities- no pretibial edema, no calf tenderness; peripheral pulses intact Neuro- alert, oriented x 3; CN 2-12 grossly intact; motor 5/5 bilaterally;sensation 100% on all extremities; no other gross focal neurologic deficits Skin- warm & dry Results & Data Results & Data ([facility]) Vital Signs (Past 12 Hours) Vital Signs Temp Pulse Resp BP Pulse Ox 07/24/21 10:47 36.8 C 70 18 104/67 96 07/24/21 07:38 36.8 C 70 18 104/67 96 all noted and reviewed including below
--- NOTE | 2021-07-30 08:45 | Discharge Summary ---
Date of Service July 30, 2021 Patient was admitted with acute facial infection verging on a developing Duane angina with difficultly talking and swallowing . She was admitted for IV antibiotics and fluid management. I took her to the OR for I and D see OP report for details. July 24 2021 Post Op infection evaluation day 1 The infected area is now responding very well. Swelling is decreasing and the tissue is healing well and much softer Good drainage is noted. Drain will be removed Thursday AM in my office Cultures pending. Infection has responded very well to the antibiotics and the I and D. I requested that the patient continue with massage, heat and wound care. At this time the area has responded well to treatment. I will Discharge Tiffanie this morning and Rx: oral Augmentin 875 x 20 Overall doing very well OK for D/C today I will see her ThursdayJul 26 in my office for follow up and drain removal Admission HPI Per Admitting Provider History obtained from patient, family, and records. Medical history significant for anxiety/mood disorder, chronic anemia (baseline hemoglobin of 11), chronic pain/drug dependence as per records on Subutex, ongoing tobacco abuse. Last confinement February 2019 under Gynecology service for missed status post suction D&C. 2 months ago, patient referred by family dentist to oral surgeon from [facility] to extract all her carious teeth. Patient subsequently completed 1 week antibiotic course. 3 weeks ago, patient noted toothache on the left jaw. Outpatient x-ray done last week showed tooth remnant on the left jaw as per patient. Patient subsequently noted progressive jaw and chin swelling leading to difficulty in opening the mouth and swallowing. Patient denies headache, chest pain, S OB. No fever, some chills. Patient prescribed amoxicillin by family dentist and told to schedule an appointment with oral surgeon from [facility]. Patient brought to ER by sister for worsening symptoms. IV Unasyn given at the ER for odontogenic infection. Medical History as above Surgical History : D&C, nose reconstruction, bunion surgery, dental surgery Family History : Leukemia, DM, prostate cancer Personal/Social history : 1 pack daily, no EtOH intake, currently unemployed, past history of crystal meth use as per records Discharge Data Consultations 07/23/21 05:03 ED Decision to Admit Stat 07/23/21 05:38 Consult Oromaxillofacial Surgery Routine Procedures Performed Operation Date: 07/23/21 10:25 Actual Procedures p Incision and Drainage Submental Infection, Debridement of Necrotic Bone Left Jaw(Not Applicable) - David Ramos DMD Coding Level of Care Code D/C DAY MANAGEMENT <30 MINS
== END 2021-07-24 11:40 | disposition home or self-care (01) ==
LOC: ED 00:03 → INTOOBSV 05:35 → SUATTDRO 05:35 → 2N 05:35

== ENCOUNTER 2021-08-28 22:21 | Observation (INO) ==
[2021-08-28] MEDS ORDERED: SODIUM CHLORIDE 0.9% 1000ML 1,000 ML IV ONE (22:56)
[2021-08-28] MEDS ORDERED: CLINDAMYCIN 900 MG in DEXTROSE 5% 50 ML IV ONE (22:56)
[2021-08-28 23:10] LABS: Basophils # (auto) 0.02 K/uL (0-0.2); Basophils % (auto) 0.1 %; Eosinophils # (auto) 0.62 K/uL (0-0.5); Eosinophils % (auto) 4.4 %; Hemoglobin 12.1 g/dL (12.0-16.0); Immature Granulocytes # (auto) 0.03 K/uL (0.00-0.02); Immature Granulocytes % (auto) 0.2 %; Lymphocytes # (auto) 2.99 K/uL (1.2-3.4); Mean Corpuscular Hemoglobin 31.7 pg (25-34); Mean Corpuscular Hgb Conc 33.6 g/dL (32-36); Mean Corpuscular Volume 94.2 fL (80-100); Monocytes # (auto) 0.81 K/uL (0.11-0.59); Monocytes % (auto) 5.7 %; Neutrophils # (auto) 9.78 K/uL (1.4-6.5); Neutrophils % (auto) 68.6 %; Platelet Count 339 K/uL (130-400); RDW Coefficient of Variation 13.2 % (11.5-14.5); RDW Standard Deviation 45.4 fL (36.4-46.3); Red Blood Count 3.82 M/uL (4.2-5.4); White Blood Count 14.25 K/uL (4.8-10.8)
--- NOTE | 2021-08-28 23:20 | Emergency Department Note ---
History of Present Illness General Chief complaint: Infection, Wound Stated complaint: INFECTION Time Seen by Provider: 08/28/21 22:39 Source: patient Mode of arrival: ambulatory Limitations: no limitations History of Present Illness Maximum Pain Intensity: 8 This patient is a 31-year-old female who presents to the emergency department for evaluation of facial swelling/infection. Patient states that she had all of her teeth pulled in April of this year. She states that last month, she developed an infection and had surgery performed by Dr. Ramos. She states that she noticed some discomfort in the same area about 3 days ago. She called Dr. Ramos's office and was placed on Augmentin. She states that over the past day, she has had significant swelling of her face, and her chin. She reports it is swollen at the area of the previous incision. She rates her discomfort an 8/10. She does state that it is difficult to swallow. Denies difficulty breathing. She does report fevers up to 103 F. Home Medications Medication Instructions Recorded Confirmed Type buprenorphine HCl 8 mg sublingual 8 mg SUBLINGUAL BID 03/02/19 08/29/21 History tablet acetaminophen 325 mg tablet 325 mg PO Q6H PRN 03/04/19 08/29/21 History (Tylenol) ibuprofen 200 mg tablet (Advil) 200 mg PO QID PRN 03/04/19 08/29/21 History amoxicillin 875 mg-potassium 1 tab PO Q12H #20 tab 08/26/21 08/29/21 Rx clavulanate 125 mg tablet Allergies Allergy/AdvReac Type Severity Reaction Status Date / Time naloxone Allergy Severe Anaphylaxis Verified 08/29/21 01:24 latex Allergy Mild Rash Verified 08/29/21 01:24 Past Med/Surg History Medical History Anemia Anxiety and depression Bipolar disorder GERD (gastroesophageal reflux disease) History of drug dependence On Subutex currently. Pt reported h/o abuse of cocaine, xanax, marijuana, heroin. now sober x 1 year History of seizures last seizure at age 20 - believes r/t medications - does not follow w/ neuro Hypoglycemia Missed OCD (obsessive compulsive disorder) Osteoarthritis Surgical History History of bunionectomy Rt History of incision and drainage (07/23/21) Incision and Drainage Submental Infection, Debridement of Necrotic Bone Left Jaw Dr. Ramos 07-23-2021 History of mandibular surgery History of tonsillectomy History of wisdom tooth extraction Status post correction of deviated nasal septum Status post excision of lipoma as a child - scalp Family History Mother Family history of diabetes mellitus Grandmother (Maternal) Family history of diabetes mellitus Grandfather (Maternal) Family history of diabetes mellitus Social History Smoking Status: Current every day smoker Tobacco Type: Cigarettes packs per day: 0.5; Second Hand Exposure: Yes; Hx Alcohol Use: No Hx Substance Use: Yes Last Used Substance Other:: 5 years ago-2016 Preferred Language: Panamanian Communication Ability: Effective Visual Impairment: No Limitations 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 Beliefs That Will Affect Care: None marital status: Single Current Living Situation: Alone Current Living Situation Comment: lives w/ fiance current occupational status: unemployed Other Information That Helps Us Care for You: No Feels Safe at Home: Yes Assistive Devices: None Review of Systems A total of 10 systems reviewed and were otherwise negative Physical Exam Vital Signs Vital Signs - 24 hr 08/28/21 22:25 08/28/21 22:56 08/28/21 23:15 Temperature 37 C Temperature Source Temporal Artery Scan Pulse Rate 92 H 95 H Pulse Rate [Left] 84 Pulse Rate from SpO2 Sensor 94 H Respiratory Rate 18 18 19 Respiratory Effort / Characteristics Non-Labored Spontaneous Non-Labored Respiratory Depth Normal Normal Blood Pressure 127/82 123/83 Blood Pressure [Left Arm] 134/90 Blood Pressure Mean 97 96 Blood Pressure Mean [Left Arm] 104 Blood Pressure Position [Left Arm] Sitting Pulse Oximetry 98 97 99 Oxygen Delivery Method Room Air Room Air Sepsis Recent Fever Within 48 Hours No Sepsis New/Unexplained Change in Mental Status No Sepsis Action Taken by Nursing No Action Required 08/28/21 23:30 08/29/21 00:16 08/29/21 00:17 Temperature Temperature Source Pulse Rate 88 89 Pulse Rate [Left] 87 Pulse Rate from SpO2 Sensor 87 Respiratory Rate 17 11 L 18 Respiratory Effort / Characteristics Respiratory Depth Blood Pressure 128/86 Blood Pressure [Left Arm] 120/73 Blood Pressure Mean 100 Blood Pressure Mean [Left Arm] 88 Blood Pressure Position [Left Arm] Pulse Oximetry 100 99 Oxygen Delivery Method Room Air Sepsis Recent Fever Within 48 Hours Sepsis New/Unexplained Change in Mental Status Sepsis Action Taken by Nursing 08/29/21 00:30 08/29/21 01:00 08/29/21 01:30 Temperature Temperature Source Pulse Rate 85 82 81 Pulse Rate [Left] Pulse Rate from SpO2 Sensor 82 Respiratory Rate 15 18 22 Respiratory Effort / Characteristics Respiratory Depth Blood Pressure 126/87 137/85 132/72 Blood Pressure [Left Arm] Blood Pressure Mean 100 102 92 Blood Pressure Mean [Left Arm] Blood Pressure Position [Left Arm] Pulse Oximetry 100 Oxygen Delivery Method Sepsis Recent Fever Within 48 Hours Sepsis New/Unexplained Change in Mental Status Sepsis Action Taken by Nursing VITALS: Vitals are noted on the nurse's note and reviewed by myself. GENERAL: This is a 31-year-old female, uncomfortable appearing. SKIN: There is erythema and induration to the submental/submandibular area with a centralized area of fluctuance. EARS: External auditory canals clear, tympanic membranes pearly osorio without erythema or effusion bilaterally. EYES: Pupils equal round and reactive to light and accommodation. NOSE: Patent, turbinates without inflammation or discharge. MOUTH: Mucous membranes moist. NECK: Supple without nuchal rigidity. Cervical lymphadenopathy noted bilaterally. HEART: Regular rate and rhythm without murmurs gallops or rubs. LUNGS: Clear to auscultation bilaterally without wheezes, rales or rhonchi. NEURO: Patient was alert and oriented to person place and time. Course Course Dr. Rachel Don [facility] Administered Medications Buprenorphine HCl (Buprenorphine Hcl 8 Mg Subl) 8 mg SL BID [facility] Stop: 09/28/21 08:59 Last Admin: 08/29/21 08:04 Dose: 8 mg Documented by: [id number] Potassium Chloride/Sodium Chloride (Normal Saline W/20 Meq Kcl) 20 meq in 1,000 mls @ 100 mls/hr IV .Q10H [facility] Stop: 08/29/21 23:29 Last Admin: 08/29/21 05:27 Dose: 100 mls/hr Documented by: [id number] Clindamycin Phosphate 600 mg/ (Dextrose) 54 mls @ 100 mls/hr IV Q8H [facility] Stop: 10/10/21 07:59 Last Admin: 08/29/21 08:02 Dose: 100 mls/hr Documented by: [id number] Levofloxacin/Dextrose (Levaquin/D5w) 750 mg in 150 mls @ 100 mls/hr IV Q24H [facility] Stop: 10/10/21 03:59 Last Infusion: 08/29/21 05:30 Dose: 0 mls/hr Documented by: [id number] Admin: 08/29/21 04:00 Dose: 100 mls/hr Documented by: [id number] Miscellaneous (Remove Nicoderm Patch) 1 ea N/A [id number] [facility] Stop: 09/28/21 08:58 Last Admin: 08/29/21 08:04 Dose: Not Given Documented by: [id number] Nicotine (Nicotine 14 Mg/24 Hr Patch) 14 mg TD QAM [facility] Stop: 09/28/21 08:59 Last Admin: 08/29/21 08:04 Dose: 14 mg Documented by: [id number] Discontinued Medications Sodium Chloride (Nss 1000ml) 1,000 mls @ 999 mls/hr IV .Q1H1M ONE Stop: 08/28/21 23:56 Last Infusion: 08/29/21 01:02 Dose: 0 mls/hr Documented by: [id number] Admin: 08/28/21 23:59 Dose: 999 mls/hr Documented by: [id number] Clindamycin Phosphate 900 mg/ (Dextrose) 56 mls @ 112 mls/hr IV ONE ONE Stop: 08/28/21 23:25 Last Infusion: 08/29/21 00:28 Dose: 0 mls/hr Documented by: [id number] Admin: 08/28/21 23:58 Dose: 112 mls/hr Documented by: [id number] Ioversol (Optiray 320 100ml) 100 ml IV ONCE ONE Stop: 08/29/21 00:21 Last Admin: 08/29/21 00:20 Dose: 93 ml Documented by: [id number] Ketorolac Tromethamine (Ketorolac Tromethamine 15 Mg/Ml Vial) 15 mg IV NOW ONE Stop: 08/29/21 03:31 Last Admin: 08/29/21 04:00 Dose: 15 mg Documented by: [id number] Morphine Sulfate (Morphine Sulfate 10 Mg/Ml Carp/Vial) 6 mg IV NOW STA Stop: 08/29/21 00:07 Last Admin: 08/29/21 00:15 Dose: 6 mg Documented by: [id number] Medical Decision Making Differential Diagnosis Differential diagnosis includes dental caries, periapical abscess, facial cellulitis, Duane's angina, pharyngitis, referred pain, among others. Home Medications Current Medication List: was personally reviewed by me Laboratory Data Attestation: I reviewed the patient's lab results. Result diagrams: 08/29/21 07:39 08/28/21 22:56 Lab Results 08/28/21 08/28/21 08/28/21 Range/Units 22:56 22:56 23:12 WBC 14.25 H (4.8-10.8) K/uL RBC 3.82 L (4.2-5.4) M/uL Hgb 12.1 (12.0-16.0) g/dL Hct 36.0 L (37-47) % MCV 94.2 (80-100) fL MCH 31.7 (25-34) pg MCHC 33.6 (32-36) g/dL RDW Std Deviation 45.4 (36.4-46.3) fL RDW Coeff of Lizeth 13.2 (11.5-14.5) % Plt Count 339 (130-400) K/uL MPV 10.0 (7.4-10.4) fL Immature Gran % (Auto) 0.2 % Neut % (Auto) 68.6 % Lymph % (Auto) 21.0 % Sully % (Auto) 5.7 % Eos % (Auto) 4.4 % Baso % (Auto) 0.1 % Neut # (Auto) 9.78 H (1.4-6.5) K/uL Lymph # (Auto) 2.99 (1.2-3.4) K/uL Sully # (Auto) 0.81 H (0.11-0.59) K/uL Eos # (Auto) 0.62 H (0-0.5) K/uL Baso # (Auto) 0.02 (0-0.2) K/uL Immature Gran # (Auto) 0.03 H (0.00-0.02) K/uL Sodium 136 (136-145) mmol/L Potassium 3.3 L (3.5-5.1) mmol/L Chloride 105 (98-107) mmol/L Carbon Dioxide 26 (21-32) mmol/L Anion Gap 5.0 (3-11) BUN 11 (7-18) mg/dl Creatinine 0.66 (0.6-1.2) mg/dl Est Cr Clr Drug Dosing 117.7 ml/min Est GFR ( Amer) 138.4 ml/min Est GFR (Non-Af Amer) 119.4 ml/min BUN/Creatinine Ratio 16.8 (10-20) Glucose 105 H (70-99) mg/dl Lactate (0.4-2.0) mmol/L Calcium 9.5 (8.5-10.1) mg/dl Total Bilirubin 0.3 (0.2-1) mg/dl AST 12 L (15-37) U/L ALT 19 (12-78) U/L Alkaline Phosphatase 86 (45-117) U/L Total Protein 8.6 H (6.4-8.2) gm/dl Albumin 4.1 (3.4-5.0) gm/dl Globulin 4.5 H (2.5-4.0) gm/dl Albumin/Globulin Ratio 0.9 (0.9-2) COVID-19 Eval Order Covid19 at [facility] SARS-CoV-2 (PCR) (Negative) 08/28/21 08/28/21 Range/Units 23:12 23:31 WBC (4.8-10.8) K/uL RBC (4.2-5.4) M/uL Hgb (12.0-16.0) g/dL Hct (37-47) % MCV (80-100) fL MCH (25-34) pg MCHC (32-36) g/dL RDW Std Deviation (36.4-46.3) fL RDW Coeff of Lizeth (11.5-14.5) % Plt Count (130-400) K/uL MPV (7.4-10.4) fL Immature Gran % (Auto) % Neut % (Auto) % Lymph % (Auto) % Sully % (Auto) % Eos % (Auto) % Baso % (Auto) % Neut # (Auto) (1.4-6.5) K/uL Lymph # (Auto) (1.2-3.4) K/uL Sully # (Auto) (0.11-0.59) K/uL Eos # (Auto) (0-0.5) K/uL Baso # (Auto) (0-0.2) K/uL Immature Gran # (Auto) (0.00-0.02) K/uL Sodium (136-145) mmol/L Potassium (3.5-5.1) mmol/L Chloride (98-107) mmol/L Carbon Dioxide (21-32) mmol/L Anion Gap (3-11) BUN (7-18) mg/dl Creatinine (0.6-1.2) mg/dl Est Cr Clr Drug Dosing ml/min Est GFR ( Amer) ml/min Est GFR (Non-Af Amer) ml/min BUN/Creatinine Ratio (10-20) Glucose (70-99) mg/dl Lactate 0.7 (0.4-2.0) mmol/L Calcium (8.5-10.1) mg/dl Total Bilirubin (0.2-1) mg/dl AST (15-37) U/L ALT (12-78) U/L Alkaline Phosphatase (45-117) U/L Total Protein (6.4-8.2) gm/dl Albumin (3.4-5.0) gm/dl Globulin (2.5-4.0) gm/dl Albumin/Globulin Ratio (0.9-2) COVID-19 Eval Order SARS-CoV-2 (PCR) NEGATIVE (Negative) Imaging Data Attestation: I personally reviewed and interpreted this imaging study as follows: Radiologist's Impression: Face CT 08/28/21 23:01 CT facial bones w con CLINICAL HISTORY: chin swelling, infection COMPARISON STUDY: CT of the neck July 23, 2021. TECHNIQUE: Axial images through the face were obtained following intravenous and ejection of 93 cc of Optiray 320 IV. Sagittal coronal reconstructed reviewed. Automated exposure control was utilized for the study. A dose lowering technique was utilized adhering to the principles of ALARA. FINDINGS: Visualized portions of the intracranial contents are unremarkable. Orbits are unremarkable. There is mild mucosal thickening of the left maxillary sinus. Postoperative findings within the maxilla are present. Note is made of submental infiltration and skin thickening with thickening of the platysma. This represents cellulitis. Prominent lymph nodes are likely reactive. There is an associated peripherally enhancing 3.1 x 2.2 cm multiloculated submental fluid collection consistent with abscess. This is at site of abscess shown on CT of July 15, 2021. Associated erosion of the anterior aspect of the mandible has increased since prior examination. This involves the anterior and posterior cortex of the anterior aspect of the mandible. No additional fluid collections are present. There is no soft tissue gas. Edema slightly extends into the floor the mouth. IMPRESSION: 1. 3.01 x 2.2 cm submental peripherally enhancing multiloculated fluid collection consistent with an abscess. Associated cellulitis and erosion of the adjacent mandible which has increased since prior comparison. This is suspicious for osteomyelitis. 2. Prominent submental lymph nodes which are likely reactive. ACT 112: Negative or not required by law. Electronically signed by: Bob Flower M.D. 08/29/2021 8:09 AM MDM Narrative Continuous lunchroom monitor: Order was placed for continuous lunchroom monitor. Patient was placed on the lunchroom monitor. Patient was noted to be in normal sinus rhythm at an initial rate of 90 bpm. This patient is a 31-year-old female who presents to the emergency department for evaluation of facial pain/swelling. Patient was seen here previously and had surgery for a facial abscess. A CT today shows evidence of abscess and cellulitis as well as osteomyelitis of the mandible. Patient was given IV clindamycin. Labs did reveal a leukocytosis of 14,000. Dr. Ramos of [facility] was consulted and agreed to evaluate the patient in the morning for operative management. Patient was admitted to the medical service. Impression & Plan Osteomyelitis of mandible, Cellulitis and abscess of face Discharge Plan Visit Data Chief Complaint: Infection, Wound Stated Complaint: INFECTION ED Provider: Orion Crews ED Midlevel Provider: Stacia Bustos Discharge Problem: Osteomyelitis of mandible, Cellulitis and abscess of face Patient Disposition: Admitted As Inpatient Discharge Instructions Interventions: ED Discharge Assessment Last Done: 08/29/21 03:04
[2021-08-28 23:30] LABS: Albumin Level 4.1 gm/dl (3.4-5.0); BUN Creatinine Ratio 16.8 (10-20); Calcium 9.5 mg/dl (8.5-10.1); Creatinine Clr Calc Pharmacy 117.7 ml/min; Est GFR (African American) 138.4 ml/min; Est GFR (Non-African American) 119.4 ml/min; Potassium 3.3 mmol/L (3.5-5.1)
[2021-08-28 23:32] LABS: Albumin Globulin Ratio 0.9 (0.9-2); Bilirubin,Total 0.3 mg/dl (0.2-1); Globulin 4.5 gm/dl (2.5-4.0); Total Protein 8.6 gm/dl (6.4-8.2)
[2021-08-29] MEDS ORDERED: MoRPHine SULFATE 10 MG/ML CARP/VIAL IV STA (00:06)
[2021-08-29] MEDS ORDERED: OPTIRAY 320 100ml IV ONE (00:20)
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
[2021-08-29] MEDS ORDERED: ONDANSETRON INJ 2 MG/ML 2 ML VIAL IV PRN (03:11)
[2021-08-29] MEDS ORDERED: MoRPHine SULFATE 2 MG/ML CARP IV PRN (03:11)
[2021-08-29] MEDS ORDERED: ACETAMINOPHEN 1,000 MG/100 ML VIAL IV PRN (03:11)
[2021-08-29] MEDS ORDERED: KETOROLAC TROMETHAMINE 15 MG/ML VIAL IV PRN (03:11)
[2021-08-29] MEDS ORDERED: KETOROLAC TROMETHAMINE 15 MG/ML VIAL IV ONE (03:30)
[2021-08-29] MEDS ORDERED: NSS + 20MEQ KCL 20 MEQ/1,000 ML BAG IV SCH (03:30)
--- NOTE | 2021-08-29 03:59 | Billing Data ---
Date of Service August 29, 2021 Coding Level of Care Code 55619 Initial Inpt Care Lvl 2
[2021-08-29] MEDS: levoFLOXacin/D5W 750 MG/150 ML BAG IV SCH (04:00)
[2021-08-29 07:53] LABS: Basophils # (auto) 0.01 K/uL (0-0.2); Basophils % (auto) 0.1 %; Eosinophils # (auto) 0.45 K/uL (0-0.5); Eosinophils % (auto) 5.4 %; Hematocrit (blood only) 30.1 % (37-47); Hemoglobin 9.9 g/dL (12.0-16.0); Immature Granulocytes # (auto) 0.02 K/uL (0.00-0.02); Immature Granulocytes % (auto) 0.2 %; Lymphocytes # (auto) 1.86 K/uL (1.2-3.4); Lymphocytes % (auto) 22.2 %; Mean Corpuscular Hgb Conc 32.9 g/dL (32-36); Mean Corpuscular Volume 94.4 fL (80-100); Mean Platelet Volume 9.6 fL (7.4-10.4); Monocytes # (auto) 0.68 K/uL (0.11-0.59); Monocytes % (auto) 8.1 %; Neutrophils # (auto) 5.36 K/uL (1.4-6.5); Platelet Count 235 K/uL (130-400); RDW Coefficient of Variation 13.2 % (11.5-14.5); RDW Standard Deviation 46.2 fL (36.4-46.3); Red Blood Count 3.19 M/uL (4.2-5.4); White Blood Count 8.38 K/uL (4.8-10.8)
[2021-08-29] MEDS ORDERED: buprenorphine HCL 8 MG SUBL ONE (07:59)
[2021-08-29] MEDS: CLINDAMYCIN 600 MG in DEXTROSE 5% 50 ML IV SCH ×3 (08:02→23:17)
[2021-08-29] MEDS: buprenorphine HCL 8 MG SUBL SL SCH ×2 (08:04→20:10)
[2021-08-29] MEDS: NICOTINE 14 MG/24 HR PATCH TD SCH (08:04)
--- NOTE | 2021-08-29 08:10 | CT Scan Report ---
CT facial bones w con CLINICAL HISTORY: chin swelling, infection COMPARISON STUDY: CT of the neck July 23, 2021. TECHNIQUE: Axial images through the face were obtained following intravenous and ejection of 93 cc of Optiray 320 IV. Sagittal coronal reconstructed reviewed. Automated exposure control was utilized for the study. A dose lowering technique was utilized adhering to the principles of ALARA. FINDINGS: Visualized portions of the intracranial contents are unremarkable. Orbits are unremarkable. There is mild mucosal thickening of the left maxillary sinus. Postoperative findings within the maxi lla are present. Note is made of submental infiltration and skin thickening with thickening of the pl atysma. This represents cellulitis. Prominent lymph nodes are likely reactive. There is an associated peripherally enhancing 3.1 x 2.2 cm multiloculated submental fluid collection consistent with absces s. This is at site of abscess shown on CT of July 15, 2021. Associated erosion of the anterior a spect of the mandible has increased since prior examination. This involves the anterior and posterior cortex of the anterior aspect of the mandible. No additional fluid collections are present. There is no soft tissue gas. Edema slightly extends into the floor the mouth. IMPRESSION: 1. 3.01 x 2.2 cm submental peripherally enhancing multiloculated fluid collection consistent with an abscess. Associated cellulitis and erosion of the adjacent mandible which has increased since prior c omparison. This is suspicious for osteomyelitis. 2. Prominent submental lymph nodes which are likely reactive. ACT 112: Negative or not required by law. Electronically signed by: Bob Flower M.D. 08/29/2021 8:09 AM
[2021-08-29 08:14] LABS: BUN Creatinine Ratio 13.3 (10-20); Calcium 8.5 mg/dl (8.5-10.1); Creatinine Clr Calc Pharmacy 141.3 ml/min; Est GFR (African American) 146.9 ml/min; Est GFR (Non-African American) 126.8 ml/min; Potassium 3.7 mmol/L (3.5-5.1)
--- NOTE | 2021-08-29 08:41 | Oral/Maxillofacial Consult ---
Date of Consultation August 29, 2021 Assessment & Plan (1) Cellulitis and abscess of face: (2) Osteomyelitis of mandible: (3) Sepsis: History of Present Illness Reason for Consultation: recurrence of facial abscess (chin) Attending Physician: Orion Arredondo MD History of Present Illness Presented to ER about 5 weeks ago with facial swelling submental and Submandibular. At that time I did an I&D and removed devital bone left jaw as swelling was also in the mouth. Present infected developed 4 days ago --no oral swelling just submental area. I saw patient in the ER pod D at 8:15 AM Over night the abscess started to drain --I cultured the deep infection for anaerobic and aerobic. There is no oral swelling --as a matter of fact the oral area looks good. No swelling floor of mouth, submandibular area, or bone ridge. All swelling is associated with the area where the drain was placed when I did the I&D almost 5 weeks ago. Presently no surgery is indicated as this looks to be a soft tissue infection. There is some periosteal changes at the inferior boarder of the chin (midline) this could represent an area of chronic osteomyelitis associated with a draining fistula. I would suggest a 24-48 hr of IV antibiotics then discharge with terminal gauger oral antibiotics. Once the acute phase is over depending how the fistula responds a surgical de bridement may be needed. At present with the acute infection a surgical debridement is not indicated. Depending on the results of the C&S a consult for infectious Dx may be needed. If this is a chronic osteo fdc IV antibiotics with PIC line and home health IV therphy may be needed. For now I suggest IV antibiotics Pain control Hydration--diet as tolerated Heat to chin I will see Tiffanie tomorrow to check her response. Allergies Allergy/AdvReac Type Severity Reaction Status Date / Time naloxone Allergy Severe Anaphylaxis Verified 08/29/21 01:24 latex Allergy Mild Rash Verified 08/29/21 01:24 Home Medications Medication Instructions Recorded Confirmed Type buprenorphine HCl 8 mg sublingual 8 mg SUBLINGUAL BID 03/02/19 08/29/21 History tablet acetaminophen 325 mg tablet 325 mg PO Q6H PRN 03/04/19 08/29/21 History (Tylenol) ibuprofen 200 mg tablet (Advil) 200 mg PO QID PRN 03/04/19 08/29/21 History amoxicillin 875 mg-potassium 1 tab PO Q12H #20 tab 08/26/21 08/29/21 Rx clavulanate 125 mg tablet Patient History Medical History Anemia Anxiety and depression Bipolar disorder GERD (gastroesophageal reflux disease) History of drug dependence On Subutex currently. Pt reported h/o abuse of cocaine, xanax, marijuana, heroin. now sober x 1 year History of seizures last seizure at age 20 - believes r/t medications - does not follow w/ neuro Hypoglycemia Missed OCD (obsessive compulsive disorder) Osteoarthritis Surgical History History of bunionectomy Rt History of incision and drainage (07/23/21) Incision and Drainage Submental Infection, Debridement of Necrotic Bone Left Jaw Dr. Ramos 07-23-2021 History of mandibular surgery History of tonsillectomy History of wisdom tooth extraction Status post correction of deviated nasal septum Status post excision of lipoma as a child - scalp Family History Mother Family history of diabetes mellitus Grandmother (Maternal) Family history of diabetes mellitus Grandfather (Maternal) Family history of diabetes mellitus Social History Smoking Status: Current every day smoker Tobacco Type: Cigarettes packs per day: 0.5; Second Hand Exposure: Yes; Hx Alcohol Use: No Hx Substance Use: Yes Last Used Substance Other:: 5 years ago-2016 Preferred Language: Setswana Communication Ability: Effective Visual Impairment: No Limitations Wardrobe Manager Required: No Beliefs That Will Affect Care: None marital status: Single Current Living Situation: Alone Current Living Situation Comment: lives w/ fiance current occupational status: unemployed Other Information That Helps Us Care for You: No Feels Safe at Home: Yes Assistive Devices: None Results & Data ([facility]) Vital Signs (Past 12 Hours) Vital Signs Temp Pulse Pulse Resp BP BP Pulse Ox 08/29/21 05:31 75 22 109/80 100 08/29/21 05:00 71 14 99 08/29/21 04:30 88 20 100 08/29/21 04:00 69 19 99 08/29/21 03:45 70 16 128/73 99 11/04/21 03:00 68 15 08/29/21 02:30 71 19 124/77 08/29/21 02:00 73 15 08/29/21 01:45 72 18 130/53 L 99 08/29/21 01:30 81 22 132/72 08/29/21 01:00 82 18 137/85 08/29/21 00:30 85 15 126/87 100 08/29/21 00:17 87 18 120/73 99 08/29/21 00:16 89 11 L 08/28/21 23:30 88 17 128/86 100 08/28/21 23:15 95 H 19 123/83 99 08/28/21 22:56 84 18 134/90 97 08/28/21 22:25 37 C 92 H 18 127/82 98 Pulse Ox 08/29/21 05:31 08/29/21 05:00 08/29/21 04:30 08/29/21 04:00 08/29/21 03:45 99 08/29/21 03:00 08/29/21 02:30 08/29/21 02:00 08/29/21 01:45 08/29/21 01:30 08/29/21 01:00 08/29/21 00:30 08/29/21 00:17 08/29/21 00:16 08/28/21 23:30 08/28/21 23:15 08/28/21 22:56 08/28/21 22:25 PG Care Time/CCT Total # of Minutes Spent Total Time Spent with Patient: Total time spent is greater than 50% in coordination of care (as documented) at patient's floor/unit and/or counseling patient: Coding Level of Care Code 60998 Inpt Consult Level 2 Diagnoses Cellulitis and abscess of face L03.211; L02.01 Osteomyelitis of mandible M27.2 Sepsis A41.9
--- NOTE | 2021-08-29 09:58 | Hospitalist Progress Note ---
Date of Service August 29, 2021 Assessment & Plan (1) Osteomyelitis of mandible: Plan: Hannah is a 31 yo woman with a history of a recent submandibular abscess s/p incision and drainage who came in for recurrent pain, swelling and redness of the submandibular region. - Face CT showing non-specific subcutaneous edema of the chin with a multi-lobar abscess measuring 2.0 x 2.6 x 1.6 cm in the submandibular space. There is a periosteal reaction where the abscess abuts the mandible, concerning for osteomyelitis. - Continue Clindamycin 600mg IV q8 hours (anaerobic and MRSA coverage) and Levaquin 750mg [id number] (pseudomonal coverage). - Dr. Ramos consulted, appreciate his input, no plans for I&D. Abscess spontaneously started draining. Cultures collected. Await sensitivities and tailor abx accordingly. Appreciate his recommendations. - Leukocytosis resolved - follow blood cultures; if blood cultures turn positive, particularly if + for staph/strep order echo to evaluate for possible valve vegetation - Pain control: Toradol 15mg q6 PRN, Tylenol 1g q8 PRN, and Morphine 2mg q4 PRN for pain control - Will consider ID consult for abx guidance, in light of osteo, patient will need oysterman abx therapy 4-6 weeks. I would favor IV over PO. (2) History of drug dependence: Plan: - continue Subutex 8mg BID (3) Hypokalemia: Plan: Replaced/resolved (4) Tobacco abuse: Plan: - counseled on cessation - nicoderm patch in place Plan: Advance diet to regular (easy to chew). cap IVF. Change to med/surg bed, pt does not need telemetry. Initiate dvt ppx with lovenox. Admission and Anticipated Discharge Date Admission Date: August 29, 2021 Subjective Ms. Araujo seen on rounds this morning. She has been hospitalized for submandibular cellulitis with abscess as well as mandibular osteo. She remains in ED until a bed on the floor is available. She was seen this morning by Dr. Ramos (oral & maxillofacial surgeon) who advised ongoing IV abx, no indication or plans for surgical debridement at this time. Pt currently resting comfortably in bed, offers no new complaints. Pain is adequately controlled with current regimen. Denies fever, chills, chest pain, dyspnea, n/v/d, headache, or gu symptoms. No issues reported by temporary staff accountant. Review of Systems Constitutional: as per Subjective / HPI Ear, Nose, Mouth, Throat: + facial pain (chin/jaw) and + dental abscess swelling under chin, open actively draining wound Integumentary: + wounds (under chin - see above) Physical Exam Constitutional: WD/WN, vitals as above Eyes: PERRL, conjunctivae normal, anicteric sclerae ENMT: Mouth: + edentulous submental edema with small opening that is actively draining purulent material. No active bleeding. Neck: + submandibular swelling Respiratory: normal respiratory effort, lungs clear to auscultation Cardiovascular: RRR, no murmur, no edema Gastrointestinal (Abdomen): normal bowel sounds, soft, nontender, no hepatosplenomegaly Skin: no rashes, warm and dry see ENT exam Psychiatric: A+Ox3, euthymic affect Results & Data Results & Data ([facility]) Vital Signs (Past 12 Hours) Vital Signs Temp Pulse Pulse Resp BP BP Pulse Ox 08/29/21 08:00 37.0 C 63 73 19 111/69 99 08/29/21 05:31 75 22 109/80 100 08/29/21 05:00 71 14 99 08/29/21 04:30 88 20 100 08/29/21 04:00 69 19 99 08/29/21 03:45 70 16 128/73 99 08/29/21 03:00 68 15 08/29/21 02:30 71 19 124/77 08/29/21 02:00 73 15 08/29/21 01:45 72 18 130/53 L 99 08/29/21 01:30 81 22 132/72 08/29/21 01:00 82 18 137/85 08/29/21 00:30 85 15 126/87 100 08/29/21 00:17 87 18 120/73 99 08/29/21 00:16 89 11 L 08/28/21 23:30 88 17 128/86 100 08/28/21 23:15 95 H 19 123/83 99 08/28/21 22:56 84 18 134/90 97 08/28/21 22:25 37 C 92 H 18 127/82 98 Pulse Ox 08/29/21 08:00 99 08/29/21 05:31 08/29/21 05:00 08/29/21 04:30 08/29/21 04:00 08/29/21 03:45 99 08/29/21 03:00 08/29/21 02:30 08/29/21 02:00 08/29/21 01:45 08/29/21 01:30 08/29/21 01:00 08/29/21 00:30 08/29/21 00:17 08/29/21 00:16 08/28/21 23:30 08/28/21 23:15 08/28/21 22:56 08/28/21 22:25 Laboratory Results Laboratory Results - last 24 hr 08/28/21 08/28/21 08/28/21 22:56 22:56 23:12 WBC 14.25 H RBC 3.82 L Hgb 12.1 Hct 36.0 L MCV 94.2 MCH 31.7 MCHC 33.6 RDW Std Deviation 45.4 RDW Coeff of Lizeth 13.2 Plt Count 339 MPV 10.0 Immature Gran % (Auto) 0.2 Neut % (Auto) 68.6 Lymph % (Auto) 21.0 Newberry % (Auto) 5.7 Eos % (Auto) 4.4 Baso % (Auto) 0.1 Neut # (Auto) 9.78 H Lymph # (Auto) 2.99 Newberry # (Auto) 0.81 H Eos # (Auto) 0.62 H Baso # (Auto) 0.02 Immature Gran # (Auto) 0.03 H Sodium 136 Potassium 3.3 L Chloride 105 Carbon Dioxide 26 Anion Gap 5.0 BUN 11 Creatinine 0.66 Est Cr Clr Drug Dosing 117.7 Est GFR ( Amer) 138.4 Est GFR (Non-Af Amer) 119.4 BUN/Creatinine Ratio 16.8 Glucose 105 H Lactate Calcium 9.5 Total Bilirubin 0.3 AST 12 L ALT 19 Alkaline Phosphatase 86 Total Protein 8.6 H Albumin 4.1 Globulin 4.5 H Albumin/Globulin Ratio 0.9 COVID-19 Eval Order Covid19 at [facility] SARS-CoV-2 (PCR) 08/28/21 08/28/21 08/29/21 23:12 23:31 07:39 WBC 8.38 RBC 3.19 L Hgb 9.9 L Hct 30.1 L MCV 94.4 MCH 31.0 MCHC 32.9 RDW Std Deviation 46.2 RDW Coeff of Lizeth 13.2 Plt Count 235 MPV 9.6 Immature Gran % (Auto) 0.2 Neut % (Auto) 64.0 Lymph % (Auto) 22.2 Newberry % (Auto) 8.1 Eos % (Auto) 5.4 Baso % (Auto) 0.1 Neut # (Auto) 5.36 Lymph # (Auto) 1.86 Newberry # (Auto) 0.68 H Eos # (Auto) 0.45 Baso # (Auto) 0.01 Immature Gran # (Auto) 0.02 Sodium Potassium Chloride Carbon Dioxide Anion Gap BUN Creatinine Est Cr Clr Drug Dosing Est GFR ( Amer) Est GFR (Non-Af Amer) BUN/Creatinine Ratio Glucose Lactate 0.7 Calcium Total Bilirubin AST ALT Alkaline Phosphatase Total Protein Albumin Globulin Albumin/Globulin Ratio COVID-19 Eval Order SARS-CoV-2 (PCR) NEGATIVE 08/29/21 07:39 WBC RBC Hgb Hct MCV MCH MCHC RDW Std Deviation RDW Coeff of Lizeth Plt Count MPV Immature Gran % (Auto) Neut % (Auto) Lymph % (Auto) Newberry % (Auto) Eos % (Auto) Baso % (Auto) Neut # (Auto) Lymph # (Auto) Newberry # (Auto) Eos # (Auto) Baso # (Auto) Immature Gran # (Auto) Sodium 139 Potassium 3.7 Chloride 110 H Carbon Dioxide 26 Anion Gap 3.0 BUN 7 Creatinine 0.55 L Est Cr Clr Drug Dosing 141.3 Est GFR ( Amer) 146.9 Est GFR (Non-Af Amer) 126.8 BUN/Creatinine Ratio 13.3 Glucose 86 Lactate Calcium 8.5 Total Bilirubin AST ALT Alkaline Phosphatase Total Protein Albumin Globulin Albumin/Globulin Ratio COVID-19 Eval Order SARS-CoV-2 (PCR) Diagnostic Findings Face CT 08/28/21 23:01 CT facial bones w con CLINICAL HISTORY: chin swelling, infection COMPARISON STUDY: CT of the neck July 23, 2021. TECHNIQUE: Axial images through the face were obtained following intravenous and ejection of 93 cc of Optiray 320 IV. Sagittal coronal reconstructed reviewed. Automated exposure control was utilized for the study. A dose lowering technique was utilized adhering to the principles of ALARA. FINDINGS: Visualized portions of the intracranial contents are unremarkable. Orbits are unremarkable. There is mild mucosal thickening of the left maxillary sinus. Postoperative findings within the maxilla are present. Note is made of submental infiltration and skin thickening with thickening of the platysma. This represents cellulitis. Prominent lymph nodes are likely reactive. There is an associated peripherally enhancing 3.1 x 2.2 cm multiloculated submental fluid collection consistent with abscess. This is at site of abscess shown on CT of July 15, 2021. Associated erosion of the anterior aspect of the mandible has increased since prior examination. This involves the anterior and posterior cortex of the anterior aspect of the mandible. No additional fluid collections are present. There is no soft tissue gas. Edema slightly extends into the floor the mouth. IMPRESSION: 1. 3.01 x 2.2 cm submental peripherally enhancing multiloculated fluid co llection consistent with an abscess. Associated cellulitis and erosion of the adjacent mandible which has increased since prior comparison. This is suspicious for osteomyelitis. 2. Prominent submental lymph nodes which are likely reactive. ACT 112: Negative or not required by law. Electronically signed by: Bob Flower M.D. 08/29/2021 8:09 AM Medications Administered Current Medications Buprenorphine HCl (Buprenorphine Hcl 8 Mg Subl) 8 mg SL BID LAKISHA Stop: 09/28/21 08:59 Last Admin: 08/29/21 08:04 Dose: 8 mg Potassium Chloride/Sodium Chloride (Normal Saline W/20 Meq Kcl) 20 meq in 1,000 mls @ 100 mls/hr IV .Q10H LAKISHA Stop: 08/29/21 23:29 Last Admin: 08/29/21 05:27 Dose: 100 mls/hr Clindamycin Phosphate 600 mg/ (Dextrose) 54 mls @ 100 mls/hr IV Q8H LAKISHA Stop: 10/10/21 07:59 Last Infusion: 08/29/21 08:40 Dose: Infused Levofloxacin/Dextrose (Levaquin/D5w) 750 mg in 150 mls @ 100 mls/hr IV Q24H LAKISHA Stop: 10/10/21 03:59 Last Infusion: 08/29/21 05:30 Dose: Infused Acetaminophen (Ofirmev) 1,000 mg in 100 mls @ 400 mls/hr IV Q8H PRN PRN Reason: Pain Ketorolac Tromethamine (Ketorolac Tromethamine 15 Mg/Ml Vial) 15 mg IV Q6H PRN PRN Reason: Pain Miscellaneous (Remove Nicoderm Patch) 1 ea N/A DAILY@[id number] [facility] Stop: 09/28/21 08:58 Last Admin: 08/29/21 08:04 Dose: Not Given Morphine Sulfate (Morphine Sulfate 2 Mg/Ml Carp) 2 mg IV Q4 PRN PRN Reason: Pain Nicotine (Nicotine 14 Mg/24 Hr Patch) 14 mg TD QAM [facility] Stop: 09/28/21 08:59 Last Admin: 08/29/21 08:04 Dose: 14 mg Ondansetron HCl (Ondansetron Inj 2 Mg/Ml 2 Ml Vial) 4 mg IV Q6H PRN PRN Reason: Nausea Stop: 09/28/21 03:10 PG Care Time/CCT Total # of Minutes Spent Total Time Spent with Patient: Total time spent is greater than 50% in coordination of care (as documented) at patient's floor/unit and/or counseling patient: [place] [address] Subseq Hosp Care Lvl 2 Patient Type Established History Expanded Problem Focused Exam Expanded Problem Focused Medical Decision Making Moderate Complexity Diagnoses Osteomyelitis of mandible M27.2 History of drug dependence F19.21 Hypokalemia E87.6 Tobacco abuse Z72.0
[2021-08-29] MEDS: ENOXAPARIN INJ 40 MG/0.4 ML SYR SQ SCH (14:03)
[2021-08-30] MEDS: levoFLOXacin/D5W 750 MG/150 ML BAG IV SCH (04:44)
[2021-08-30 06:21] LABS: Basophils # (auto) 0.01 K/uL (0-0.2); Basophils % (auto) 0.2 %; Eosinophils # (auto) 0.46 K/uL (0-0.5); Eosinophils % (auto) 7.6 %; Hematocrit (blood only) 30.9 % (37-47); Hemoglobin 10.2 g/dL (12.0-16.0); Immature Granulocytes # (auto) 0.01 K/uL (0.00-0.02); Immature Granulocytes % (auto) 0.2 %; Lymphocytes % (auto) 38.2 %; Mean Corpuscular Hemoglobin 30.8 pg (25-34); Mean Corpuscular Volume 93.4 fL (80-100); Monocytes # (auto) 0.38 K/uL (0.11-0.59); Monocytes % (auto) 6.3 %; Neutrophils # (auto) 2.86 K/uL (1.4-6.5); Neutrophils % (auto) 47.5 %; Platelet Count 245 K/uL (130-400); RDW Coefficient of Variation 13.1 % (11.5-14.5); RDW Standard Deviation 45.1 fL (36.4-46.3); Red Blood Count 3.31 M/uL (4.2-5.4); Reticulocyte % 0.5 % (0.5-2.0); Reticulocytes # 0.02 10^6/uL (0.02-0.10); White Blood Count 6.02 K/uL (4.8-10.8)
[2021-08-30 06:51] LABS: BUN Creatinine Ratio 18.4 (10-20); Calcium 8.8 mg/dl (8.5-10.1); Creatinine Clr Calc Pharmacy 131.7 ml/min; Est GFR (African American) 143.6 ml/min; Est GFR (Non-African American) 123.9 ml/min; Potassium 3.4 mmol/L (3.5-5.1)
[2021-08-30 06:57] LABS: Ferritin 71.7 ng/ml (8-388)
[2021-08-30] MEDS: NICOTINE 14 MG/24 HR PATCH TD SCH (08:15)
[2021-08-30] MEDS: buprenorphine HCL 8 MG SUBL SL SCH (08:18)
[2021-08-30] MEDS: ENOXAPARIN INJ 40 MG/0.4 ML SYR SQ SCH (08:20)
[2021-08-30] MEDS: CLINDAMYCIN 600 MG in DEXTROSE 5% 50 ML IV SCH (08:21)
[2021-08-30] MEDS ORDERED: POTASSIUM CHLORIDE 20 MEQ/15 ML UDC PO STA (08:49)
--- NOTE | 2021-08-30 10:26 | Oral/Maxillofacial Progress Nt ---
Date of Service August 30, 2021 Assessment & Plan Admission and Anticipated Discharge Date Admission Date: August 29, 2021 Subjective Post Op infection evaluation The infected area has responded very well. Swelling is gone and the tissue is looking great No oral swelling No drainage is noted. Cultures pending. Infection has responded very well to the antibiotics and the I and D I did in the ER I requested that the patient continue with massage, heat and wound care. At this time the area is well healed and responded well to treatment. I will place her on Augmentin 875 for at least 2 weeks I will await the results of the C&S and make changes if needed I will see Tiffanie in 2 weeks or sooner if needed OK for D/C Results & Data ([facility]) Vital Signs (Past 12 Hours) Vital Signs Temp Pulse Pulse Resp BP Pulse Ox 08/30/21 05:57 36.5 C 65 16 113/75 98 08/29/21 23:00 36.7 C 64 16 117/75 99 PG Care Time/CCT Total # of Minutes Spent Total Time Spent with Patient: Total time spent is greater than 50% in coordination of care (as documented) at patient's floor/unit and/or counseling patient: Coding Level of Care Code 89618 Subseq Hosp Care Lvl 1
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
--- NOTE | 2021-09-05 12:57 | Coding Query ---
CODING CLARIFICATION Sepsis is documented on the consulting physician's consultation report. It is not documented throughout the rest of the chart. For accurate coding assignment, please clarify the presence of sepsis during this admission below: ( ) Sepsis was present during this admission ( X ) Sepsis was not present during this admission ( ) Other, please clarify Thank you for your assistance, Maddy Scott - Basket Machine Operator LUIS
== END 2021-08-30 12:25 | disposition home or self-care (01) ==
LOC: ED 22:21 → INTOOBSV 08-29 01:43 → SUATTDRO 08-29 01:43 → EDINP 08-29 01:43 → 3E 08-29 13:29

== ENCOUNTER 2024-12-17 14:28 | Observation (INO) ==
--- OUTSIDE RECORDS SUMMARY | 2024-12-17 14:39 | External Medical Summary | Summary of Care ---
Author Name Unknown Organization [facility] Address [address] [place] [address] Phone [phone] Care Team Providers Care Sanitor Name Role Phone Reynaldo Cooper PA-C Primary Care Provider Reason for Visit * Reason Onset Date Comments Appointment 12/14/2024 pt called to rec hed with kindra when told the next avail she stated she neeru not be rescheduling and to just cancel it Encounter Details Date Type Department Care Team (Late st Contact Info) Description 12/14/2024 Telephone Dermatology [facility] [address] [place], [place] [id number] Services, Scheduling [address] [place] [address] Appointment (pt called to reched with tenzin... Allergies Active Allergy Reactions Criticality Noted Date Comments Latex High 11/25/2023 documented as of this encounter (statuses as of 12/15/2024) Medications Buprenorphine HCl 8 MG Sublingual Tablet Sublingual (Subutex) 2 times a day . 2 Active Clobetasol Propionate 0.05 % External Ointment (Temovate)Indic ations:Dyshidro sis Apply 2x daily to hand eczema when flaring (see printed hydration regimen on checkout sheet) 60 g 4 Active Ketoconazole 2 % External Shampoo (Nizoral)Indica tions:Seborrhei c dermatitis of scalp Massage into scalp and rinse out after 5-10 minutes, use 3x weekly. 120 mL 3 4 Active documented as of this encounter (statuses as of 12/15/2024) Active Problems Problem Noted Date Diagnosed Date Bipolar I disorder, most recent episode depresse d, moderate 09/30/2010 Anxiety state 09/30/2010 Tobacco use disorder documented as of this encounter (statuses as of 12/15/2024) Resolved Problems Problem Noted Date Diagnosed Date Resolved Date Superficial bruising 09/30/2010 013 Generalized osteoarthritis 04/30/2009 0 07/05/2013 Other allergic rhinitis 07/12/200111/26 Overview (08/18/2017): ICD-10 update of inactive term documented as of this encounter (statuses as of 12/15/2024) Immunizations Name Administration Dates Next Due HPV Vaccine, 4-Valent 09/25/2009,05/28/2009,10/2008 Meningococcal Conjugate Vacc ine (Menactra/Menveo) 03/26/2009 OPV - Polio Virus Vaccine (Oral) 05/18/2013 PPD 12/17/2011 Seasonal Influenza Vac., MDV , IM, 0.5 mL (Fluzone) 08/31/2013 TDAP, Age 7 and older, IM (Adacel) 03/26/2009 documented as of this encounter Social History Tobacco Use Types Packs/Day Years Used Date Smoking Tobacco: Every Day Cigarettes 1 15.8 Started: 2009 Smokeless Tobacco: Never Comments:17 Alcohol Use Standard Drinks/Week Comments Not Currently 0 (1 standard drink = 0.6 oz pur e alcohol) Utilities Answer Date Recorded Do you have trouble paying y our heating, water, or electric bill? (Adult - for ages 18 years and over) Not on file 04/12/2024 Is your family able to pay t he heat, water, or electric bill? (Household - for ages 0-17 years) Not on file 04/12/2024 Does your family have access to good internet? (Household - for ages 0-17 years) Not on file 04/12/2024 Social Connections Answer Date Recorded How often do you feel lonely or isolated from those around you? (Adult - for ages 18 years and over) Not on file 04/12/2024 Comments No Sex and Gender Information Value Date Recorded Sex Assigned at Not on file Legal Sex Female 6:03 AM EST Gender Identity Not on file Sexual Orientation Not on file documented as of this encounter Miscellaneous Notes * Telephone Encounter - Carly De La Torre OSA - 12/14/2024 4:22 PM EST Jacklyn pt called to reched with kindra when told the next avail she stated she neeru not be rescheduling and to just cancel it Thank you, STEPHANIE Ding documented in this encounter Plan of Treatment Health Maintenance Due Date Last Done Comments HIV Screening 2007 Hepatitis C Screening 2010 Pneumococcal Vaccine: Pediatrics (0 to 5 Years) and At-Risk Patients (6 to 18 Years and 19+ Years) (1 of 2 - PCV) 2011 Pap Smear 12/05/2016 12/05/2013 (Done elsewhere) DTap/Tdap Vaccines (7 - Td or Tdap) 03/26/2019 03/26/2009, 03/11/2004, 08/20/1993, Additional history exists Cervical Cancer Screening 2022 HPV/Co-Test 2022 COVID-19 Vaccine ( - season) 2024 Influenza Vaccine (FLU shot) (#1) 2024 08/31/2013, 09/02/2005 Hepatitis B Vaccine Completed 08/20/1993, 04/26/1993, 1992 MENINGOCOCCAL (MENACTRA/MENVEO) Completed 03/26/2009 HPV (Gardasil) Vaccine Completed , 05/28/2009, 03/26/2009 Meningitis B Vaccine (Bexsero/Trumemba) Aged Out No longer eligible based on patient's age to complete this topic documented as of this encounter Medical Devices Not on filedocumented as of this encounter Care Teams Sanitor Relationship Specialty Start Date End Date Reynaldo Cooper PA-C [address] [place] [id number] PCP - General Physician Seasonal Greenery Bundler 11/26/23 documented as of this encounter
--- OUTSIDE RECORDS SUMMARY | 2024-12-17 14:39 | External Medical Summary | Summary of Care ---
Author Name Unknown Organization [facility] Address [address] [place] [address] Phone [phone] Care Team Providers Care First Line Supervisor Name Role Phone Reynaldo Cooper PA-C Primary Care Provider Reason for Visit * Reason Onset Date Comments Appointment 12/14/2024 pt called to rec hed with kindra when told the next avail she stated she neeru not be rescheduling and to just cancel it Encounter Details Date Type Department Care Team (Late st Contact Info) Description 12/14/[address] [facility] [address] [place], [place] [phone] Services, Scheduling [address] [place] [address] Appointment (pt called to reched with tenzin... [...] filedocumented as of this encounter Care Teams First Line Supervisor Relationship Specialty Start Date End Date Reynaldo Cooper PA-C [address] [place] [phone] PCP - General Physician Sales Incentive Analyst 11/26/23 documented as of this encounter
--- NOTE | 2024-12-17 15:01 | Emergency Department Note ---
Impression & Plan Abdominal pain, Influenza A, Viral pneumonia, Hypoxia ED Provider Note CHIEF COMPLAINT: Abdominal pain HISTORY OF PRESENTING ILLNESS: The patient is a 34-year-old female who arrives to the emergency department for evaluation of right lower quadrant abdominal pain. She reports began yesterday. She reports history of ectopic . She states symptoms are consistent with previous episode of ectopic . She reports she reports right lower quadrant abdominal pain, fever, nausea, and vomiting. She states she took Tylenol at home, which has not helped her symptoms. She states symptoms have been going on for approximately 4 days. She states she also takes buprenorphine, however has been unable to keep it down due to persistent nausea and vomiting. She denies knowledge of current positive . REVIEW OF SYSTEMS: See HPI for pertinent positives and pertinent negatives. ALLERGIES: Naloxone, latex MEDICATIONS: Buprenorphine, medical marijuana. PAST MEDICAL HISTORY: with history of ectopic . Drug use affecting . History of drug dependence. PHYSICAL EXAM: VITALS: Vitals are noted on the nurse's note and reviewed by myself. Vital signs stable. GENERAL: 34-year-old female, in no acute distress, nondiaphoretic. SKIN: The skin was without rashes, erythema, edema, or bruising. HEAD: Normocephalic atraumatic. EYES: Pupils equal round and reactive to light and accommodation. Conjunctivae without injection, sclerae without icterus. Extraocular movements intact. NOSE: Patent, turbinates without inflammation or discharge. No sinus tenderness. MOUTH: Mucous membranes moist. No tonsillar hypertrophy. Pharynx without erythema or exudate. Uvula midline. Airway patent. Tongue does not deviate. NECK: Supple without nuchal rigidity. No cervical lymphadenopathy. HEART: Tachycardia with regular rhythm without murmurs gallops or rubs. LUNGS: Clear to auscultation bilaterally without wheezes, rales or rhonchi. No retractions or accessory muscle use. ABDOMEN: Positive bowel sounds x 4. Soft, TTP, RLQ, no rebound tenderness or guarding. MUSCULOSKELETAL: No muscle atrophy, erythema, or edema noted. Normal gait. Strength 5/5 throughout. NEURO: Patient was alert and oriented to person place and time. No focal neurological deficits. DIFFERENTIAL DIAGNOSIS: Appendicitis, ovarian cyst, ovarian torsion, ectopic , TOA, PID, infections, diverticulitis, UTI, obstruction, mesenteric ischemia, aortic pathology, inflammatory bowel disease, renal colic, PUD, pancreatitis, biliary pathology, hernia, volvulus, constipation, pneumonia, viral illness, as well as other pathologies. HISTORY FROM INDEPENDENT HISTORIAN: Additional history provided by significant other at bedside. MEDICATIONS GIVEN: 1 L NSS, 4 mg IV Zofran, 1 g IV acetaminophen. MONITOR: Continuous registered nurse cardiac: Order was placed for continuous registered nurse cardiac. Patient was placed on the registered nurse cardiac and continuous pulse ox. Patient was noted to be in normal sinus rhythm at an initial rate of 97 bpm per my interpretation. INTERPRETATION OF LABS: I interpreted the labs with full lab results as below in the lab section of this note. Pertinent lab results discussed in the MDM section below. INTERPRETATION OF IMAGING: Imaging studies were interpreted by myself and read by radiology as per the imaging section of this note. EXTERNAL RECORDS REVIEWED: PDMP shows last buprenorphine prescription filled 11/19/2024 for 28-day supply. CHRONIC MEDICAL/SOCIAL CONDITIONS AFFECTING CARE: Tobacco use ESCALATION OF CARE CONSIDERED: Hospital admission considered due to hypoxia, with positive influenza, and likely viral pneumonia. MDM SUMMARY: The patient is a 34-year-old female who arrives to the emergency department for evaluation of the above-stated complaint. A saline lock was established, CBC, CMP, lipase, beta-hCG qualitative, urinalysis were obtained. Lab work shows leukopenia, with a stable anemia. CMP shows hypokalemia 3.0, repleted with 40 mEq p.o. potassium. Lipase negative. Procalcitonin 0.05. hCG qualitative negative. Urinalysis shows 3+ ketones 2+ blood, no bacteria, leukocyte esterase, or nitrites. Upper respiratory viral panel positive for influenza A H3. No acute process of the abdomen or pelvis. Radiology reports findings concerning for bilateral lower lobe pneumonia. Ultrasound imaging of the pelvis shows blood flow to bilateral ovaries, with no concerning findings. Chest x-ray was obtained which per my interpretation shows no consolidation. The patient was provided IV hydration, 4 mg of IV Zofran, and 1 mg of IV acetaminophen. The patient is out of the window for Tamiflu. Due to hypoxia, with viral illness, hospital admission is indicated. Case management was contacted regarding the need for admission, who [facility] Nettles agreed to consult the patient, and accept her under his care. Please refer to his documentation for further patient workup and care. DIAGNOSIS: Viral pneumonia, hypoxia. The chart was completed utilizing [employer] Speech voice recognition software. Grammatical errors, random word insertions, pronoun errors, and incomplete sentences are an occasional consequence of this system due to software limitations, ambient noise, and hardware issues. Any formal questions or concerns about the content, text, or information contained within the body of this dictation should be directly addressed to the provider for clarification. 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 Pt reported h/o abuse of cocaine, xanax, marijuana, heroin. now sober x 1 year Missed Medical History History of COVID-19 slight residual cough since having COVID 08/19/23 GERD (gastroesophageal reflux disease) controlled, stable per pt Hypoglycemia intermittent history, last noted in 2019 per EMR and patient OCD (obsessive compulsive disorder) Bipolar disorder History of seizures last seizure at age 20 - believes r/t medications - does not follow w/ neuro Anxiety and depression Anemia Surgical History S/P unilateral salpingo-oophorectomy Right H/O dilation and curettage History of incision and drainage (07/23/21) Incision and Drainage Submental Infection, Debridement of Necrotic Bone Left Jaw Dr. Ramos 07-23-2021 Grade 1 view, glidescope 3, ETT 7. Status post correction of deviated nasal septum Status post excision of lipoma as a child - scalp History of bunionectomy Rt History of mandibular surgery History of wisdom tooth extraction History of tonsillectomy Family History Mother Family history of diabetes mellitus Cervical cancer Grandmother (Maternal) Family history of diabetes mellitus Grandfather (Maternal) Family history of diabetes mellitus Denies family history of Ovarian cancer Bipolar disorder Colorectal cancer Social History Smoking Status: Unknown if ever smoked Tobacco Type: Cigarettes packs per day: 0.5; Cigarettes Per Day: 20; Second Hand Exposure: No; Do You Dip or Chew Tobacco: No; Hx Alcohol Use: No Hx Substance Use: Yes (current marijuana card) Last Used Substance Other:: yesterday Preferred Language: Uzbek Communication Ability: Effective Visual Impairment: No Limitations [employer]ou[employer] Required: No Beliefs That Will Affect Care: None marital status: Single marital status details: Clementina Gomez [phone] Current Living Situation: Significant Other Current Living Situation Comment: lives w/ fiance, dog, rabbit current occupational status: employed 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 Previous Rx's Medication Instructions Recorded acetone (urine) test (Ketone Urine #50 ea 09/15/23 Test strips) blood sugar diagnostic (OneTouch #150 ea 09/15/23 Verio test strips) blood-glucose meter (OneTouch #1 ea 09/15/23 Verio Reflect Meter) lancets 33 gauge (OneTouch Delica #150 ea 09/15/23 Plus Lancet) Results & Data (ED) Vital Signs Vital Signs - 24 hr 12/17/24 14:39 12/17/24 14:53 12/17/24 14:56 Temperature 37.7 C H Temperature Source Oral Pulse Rate 111 H 99 H Pulse Rate [Apical] 97 H Pulse Rate from SpO2 Sensor Respiratory Rate 27 H 18 Respiratory Effort / Characteristics Non-Labored Spontaneous Respiratory Depth Normal Respiratory Pattern Regular Blood Pressure 144/84 H Blood Pressure [Left Arm] 125/85 Blood Pressure Mean 104 Blood Pressure Mean [Left Arm] 98 Blood Pressure Position [Left Arm] Sitting Pulse Oximetry 93 94 Oxygen Delivery Method Room Air Room Air Oxygen Flow Rate Sepsis Recent Fever Within 48 Hours Yes Sepsis New/Unexplained Change in Mental Status N/A Sepsis Action Taken by Nursing No Action Required 12/17/24 15:38 12/17/24 15:41 12/17/24 16:38 Temperature Temperature Source Pulse Rate 94 H 95 H Pulse Rate [Apical] 98 H Pulse Rate from SpO2 Sensor Respiratory Rate 20 15 20 Respiratory Effort / Characteristics Respiratory Depth Respiratory Pattern Blood Pressure Blood Pressure [Left Arm] 105/73 Blood Pressure Mean Blood Pressure Mean [Left Arm] 83 Blood Pressure Position [Left Arm] Pulse Oximetry 89 L 92 90 Oxygen Delivery Method Room Air Nasal Cannula Room Air Oxygen Flow Rate 2 Sepsis Recent Fever Within 48 Hours Sepsis New/Unexplained Change in Mental Status Sepsis Action Taken by Nursing 12/17/24 16:48 12/17/24 16:51 12/17/24 17:07 Temperature Temperature Source Pulse Rate 87 93 H 89 Pulse Rate [Apical] Pulse Rate from SpO2 Sensor 87 92 H Respiratory Rate 22 22 20 Respiratory Effort / Characteristics Respiratory Depth Respiratory Pattern Blood Pressure 125/85 Blood Pressure [Left Arm] Blood Pressure Mean 98 Blood Pressure Mean [Left Arm] Blood Pressure Position [Left Arm] Pulse Oximetry 88 L 90 88 L Oxygen Delivery Method Room Air Oxygen Flow Rate Sepsis Recent Fever Within 48 Hours Sepsis New/Unexplained Change in Mental Status Sepsis Action Taken by Nursing 12/17/24 17:09 Temperature Temperature Source Pulse Rate 90 Pulse Rate [Apical] Pulse Rate from SpO2 Sensor Respiratory Rate 20 Respiratory Effort / Characteristics Respiratory Depth Respiratory Pattern Blood Pressure Blood Pressure [Left Arm] Blood Pressure Mean Blood Pressure Mean [Left Arm] Blood Pressure Position [Left Arm] Pulse Oximetry 95 Oxygen Delivery Method Nasal Cannula Oxygen Flow Rate 2 Sepsis Recent Fever Within 48 Hours Sepsis New/Unexplained Change in Mental Status Sepsis Action Taken by [facility] Medications Current Medication List: was personally reviewed by me Laboratory Data Attestation: I reviewed the patient's lab results. 12/17/24 14:54 12/17/24 14:54 Lab Results 12/17/24 Range/Units 14:54 WBC 5.32 (4.8-10.8) K/ul RBC 3.93 L (4.20-5.40) M/uL Hgb 11.4 L (12.0-16.0) g/dl Hct 34.0 L (37.0-47.0) % MCV 86.5 (80.0-100.0) fL MCH 29.0 (25.0-34.0) pg MCHC 33.5 (32.0-36.0) g/dL RDW Std Deviation 39.7 (36.4-46.3) fL RDW Coeff of Lizeth 12.5 (11.5-14.5) % Plt Count 128 L (130-400) K/uL MPV 11.6 (9.4-12.4) fL Immature Gran % (Auto) 0.4 % Neut % (Auto) 81.8 % Lymph % (Auto) 10.5 % [place] % (Auto) 7.3 % Eos % (Auto) 0.0 % Baso % (Auto) 0.0 % Neut # (Auto) 4.35 (1.40-6.50) K/uL Lymph # (Auto) 0.56 L (1.20-3.40) K/uL [place] # (Auto) 0.39 (0.11-0.59) K/uL Eos # (Auto) 0.00 (0.00-0.50) K/uL Baso # (Auto) 0.00 (0.00-0.20) K/uL Immature Gran # (Auto) 0.02 (0.01-0.20) K/uL Sodium 135 L (136-145) mmol/L Potassium 3.0 L (3.5-5.1) mmol/L Chloride 100 (98-107) mmol/L Carbon Dioxide 26 (21-32) mmol/L Anion Gap 9 (3-11) BUN 10 (6-23) mg/dl Creatinine 0.57 L (0.6-1.2) mg/dl Est Cr Clr Drug Dosing 132.6 ml/min eGFR 123.75 BUN/Creatinine Ratio 17.5 (10-20) Glucose 112 H (70-99(Fasting)) mg/dl Calcium 9.1 (8.6-10.3) mg/dl Total Bilirubin 0.4 (0.2-1.0) mg/dl AST 84 H (13-39) U/L ALT 60 H (7-52) U/L Alkaline Phosphatase 74 (34-104) U/L Total Protein 7.8 (6.0-8.3) gm/dl Albumin 4.6 (3.4-5.0) gm/dl Globulin 3.2 (2.5-4.0) gm/dl Albumin/Globulin Ratio 1.4 (0.9-2) Lipase 9 L (11-82) U/L Procalcitonin 0.05 (0-0.5) ng/ml HCG, Qual Negative (Negative) Urine Color Yellow Urine Appearance Clear (Clear) Urine pH 5.5 (4.5-7.5) Ur Specific [place] 1.023 (1.000-1.030) Urine Protein Trace H (Negative) Urine Glucose (UA) Negative (Negative) Urine Ketones 3+ H (Negative) Urine Blood 2+ H (Negative) Urine Nitrite Negative (Negative) Urine Bilirubin Negative (Negative) Urine Urobilinogen Negative (Negative) Ur Leukocyte Esterase Negative (Negative) Urine WBC (Auto) 0-5 (0-5) /hpf Urine RBC (Auto) 3-5 H (0-2) /hpf U Hyaline Cast (Auto) 0-2 (0-2) /lpf U Epithel Cells (Auto) 0-2 (0-2) /hpf Urine Bacteria (Auto) None Seen (None Seen) Adenovirus (PCR) Not Detected (NotDetected) B. pertussis DNA (PCR) Not Detected (NotDetected) B.parapertussis DNA PCR Not Detected (NotDetected) C. pneumoniae DNA (PCR) Not Detected (NotDetected) Coronavirus OC43 (PCR) Not Detected (NotDetected) Coronavirus HKU1 (PCR) Not Detected (NotDetected) Coronavirus 229E (PCR) Not Detected (NotDetected) SARS-CoV-2 (PCR) Not Detected (NotDetected) Coronavirus NL63 (PCR) Not Detected (NotDetected) Human Metapneumovir PCR Not Detected (NotDetected) Influenza A (H3) PCR DETECTED A (NotDetected) Influenza Type B (PCR) Not Detected (NotDetected) M. pneumoniae (PCR) Not Detected (NotDetected) Parainfluenza 1 (PCR) Not Detected (NotDetected) Parainfluenza 2 (PCR) Not Detected (NotDetected) Parainfluenza 3 (PCR) Not Detected (NotDetected) Parainfluenza 4 (PCR) Not Detected (NotDetected) RSV (PCR) Not Detected (NotDetected) Entero/Rhino (PCR) Not Detected (NotDetected) Administered Medications Discontinued Medications Sodium Chloride (Nss) 1,000 mls @ 999 mls/hr IV .Q1H1M STA Stop: 12/17/24 16:06 Last Infusion: 12/17/24 16:55 Dose: Infused Documented By: Admin: 12/17/24 15:33 Dose: 999 mls/hr Documented By: MYRIAM Acetaminophen (Ofirmev) 1,000 mg in 100 mls @ 400 mls/hr IV NOW STA Stop: 12/17/24 16:00 Last Infusion: 12/17/24 16:40 Dose: Infused Documented By: Admin: 12/17/24 16:30 Dose: 400 mls/hr Documented By: MARGE Ioversol (Optiray 320 100ml) 94 ml IV ONCE ONE Stop: 12/17/24 16:24 Last Admin: 12/17/24 16:23 Dose: 94 ml Documented By: NICKOLAS Ondansetron HCl (Ondansetron Inj 2 Mg/Ml 2 Ml Vial) 4 mg IV NOW STA Stop: 12/17/24 15:07 Last Admin: 12/17/24 15:34 Dose: 4 mg Documented By: MYRIAM Potassium Chloride (Potassium Chloride Crtab 20 Meq Tabcr) 40 meq PO NOW STA Stop: 12/17/24 15:52 Last Admin: 12/17/24 16:31 Dose: 40 meq Documented By: MARGE Imaging Data Attestation: I personally reviewed and interpreted this imaging study as follows: Radiologist's Impression: Abdomen/Pelvis CT 12/17/24 15:06 INDICATION: Abdominal pain. COMPARISON: CT from 01/05/2023. TECHNIQUE: Axial CT images of the abdomen and pelvis were obtained following IV contrast administration. Coronal and sagittal reformations were reviewed. FINDINGS: Patchy infiltrate in the left lower lobe and to lesser degree the right lower lobe. The liver, gallbladder, spleen, pancreas and adrenal glands appear unremarkable. No hydronephrosis. No evidence of bowel obstruction/colitis/appendicitis. No free air. No drainable fluid collection. The urinary bladder appears unremarkable. Phleboliths in the pelvis. IUD in the uterus. No acute osseous abnormality evident. IMPRESSION: 1. No acute process in the abdomen or pelvis. 2. Findings concerning for bilateral lower lobe pneumonia. Electronically signed by Priyank Ceja 12-17-2024 4:45 PM Pelvis Ultrasound 12/17/24 15:08 US Pelvis COMPARISON: None. HISTORY: Pelvic pain TECHNIQUE: The pelvis was scanned in standard fashion with a transabdominal and transvaginal transducer(s) using both harper scale and color Doppler techniques. FINDINGS: The uterus measures 7.3 x 3.4 x 4.8 cm , and there is no evidence of a focal fibroid. The endometrium is within normal limits containing an IUD. There is no free fluid in the pelvis. There are small nabothian cysts. The right ovary measures 1.8 x 3.0 x 2.2 cm and the left ovary measures 1.1 x 3.3 x 1.7 cm . There is no adnexal mass. There is normal blood flow to the ovaries. IMPRESSION: Normal pelvic ultrasound. An IUD is in place. Electronically signed by Hayder Mata 12-17-2024 5:58 PM Discharge Plan Visit Data Chief Complaint: Abdominal Pain Stated Complaint: TUBAL RUPTURE ED Provider: Darin Hernandez ED Midlevel Provider: Lore Hui Discharge Problem: Abdominal pain, Influenza A, Viral pneumonia, Hypoxia Patient Disposition: Admitted As Inpatient Forms Stand Alone Forms: Work/School Release (ED), [facility] Prescriptions Prescriptions: No Action (DME) Ketone Urine Test Strip See Rx Instructions .MEDSUPPLY Qty: 50 2RF Rx Instructions: As directed to check ketones in urine once a day in the morning (DME) OneTouch Verio test strips Strip See Rx Instructions .MEDSUPPLY Qty: 150 2RF Rx Instructions: check blood sugars 4 times a day (DME) blood-glucose meter [OneTouch Verio Reflect Meter] Misc See Rx Instructions miscellaneous .MEDSUPPLY Qty: 1 0RF Rx Instructions: As directed (DME) lancets [OneTouch Delica Plus Lancet] 33 gauge misc See Rx Instructions .MEDSUPPLY Qty: 150 2RF Rx Instructions: As directed check blood sugars 4 times a day buprenorphine HCl 8 mg Tablet, Sublingual 8 mg SUBLINGUAL BID Medical Marijuana 1 dose inhalation TID PRN (Reason: PER PT " NEEDED".) Rx Instructions: SMOKES Referrals Referrals: Reynaldo Cooper PA-C [Primary Care Provider] -
[2024-12-17] MEDS: SODIUM CHLORIDE 0.9% 1,000 ML IV STA (15:33)
[2024-12-17] MEDS: ONDANSETRON INJ 2 MG/ML 2 ML VIAL IV STA ×2 (15:34→20:21)
[2024-12-17 15:42] LABS: Hemoglobin 11.4 g/dl (12.0-16.0); Immature Granulocytes # (auto) 0.02 K/uL (0.01-0.20); Immature Granulocytes % (auto) 0.4 %; Lymphocytes # (auto) 0.56 K/uL (1.20-3.40); Lymphocytes % (auto) 10.5 %; Mean Corpuscular Hgb Conc 33.5 g/dL (32.0-36.0); Mean Corpuscular Volume 86.5 fL (80.0-100.0); Mean Platelet Volume 11.6 fL (9.4-12.4); Monocytes # (auto) 0.39 K/uL (0.11-0.59); Monocytes % (auto) 7.3 %; Neutrophils # (auto) 4.35 K/uL (1.40-6.50); Neutrophils % (auto) 81.8 %; Platelet Count 128 K/uL (130-400); RDW Coefficient of Variation 12.5 % (11.5-14.5); RDW Standard Deviation 39.7 fL (36.4-46.3); Red Blood Count 3.93 M/uL (4.20-5.40); White Blood Count 5.32 K/ul (4.8-10.8)
[2024-12-17 15:49] LABS: Albumin Globulin Ratio 1.4 (0.9-2); Albumin Level 4.6 gm/dl (3.4-5.0); BUN Creatinine Ratio 17.5 (10-20); Bilirubin,Total 0.4 mg/dl (0.2-1.0); Calcium 9.1 mg/dl (8.6-10.3); Creatinine Clr Calc Pharmacy 132.6 ml/min; Globulin 3.2 gm/dl (2.5-4.0); Total Protein 7.8 gm/dl (6.0-8.3)
[2024-12-17 15:53] LABS: Pregnancy Test, Serum Negative (Negative)
[2024-12-17 15:57] LABS: Appearance Urine Clear (Clear); Bacteria Urine Automated None Seen (None Seen); Bilirubin Urine Negative (Negative); Blood Urine 2+ (Negative); Cast Urine Automated 0-2 /lpf (0-2); Color Urine Yellow; Epithelial Cell Urine Auto 0-2 /hpf (0-2); Glucose Urine UA Negative (Negative); Ketones Urine 3+ (Negative); Leukocyte Esterase Urine Negative (Negative); Nitrite Urine Negative (Negative); Protein Urine Trace (Negative); Specific Gravity Urine 1.023 (1.000-1.030); Urobilinogen Urine Negative (Negative); WBC Urine Automated 0-5 /hpf (0-5); pH Urine 5.5 (4.5-7.5)
[2024-12-17] MEDS: OPTIRAY 320 100ml IV ONE (16:23)
[2024-12-17] MEDS: ACETAMINOPHEN 1,000 MG/100 ML VIAL IV STA (16:30)
[2024-12-17 16:31] LABS: Adenovirus PCR Not Detected (NotDetected); Bordetella parapertussis PCR Not Detected (NotDetected); Bordetella pertussis PCR Not Detected (NotDetected); Chlamydia pneumoniae PCR Not Detected (NotDetected); Coronavirus 229E PCR Not Detected (NotDetected); Coronavirus CoV-2 (COVID19)PCR Not Detected (NotDetected); Coronavirus HKU1 PCR Not Detected (NotDetected); Coronavirus NL63 PCR Not Detected (NotDetected); Coronavirus OC43PCR Not Detected (NotDetected); Human Metapneumovirus PCR Not Detected (NotDetected); Influenza A (H3) PCR DETECTED (NotDetected); Influenza B PCR Not Detected (NotDetected); Mycoplasma pneumoniae PCR Not Detected (NotDetected); Parainfluenza Virus 1 PCR Not Detected (NotDetected); Parainfluenza Virus 2 PCR Not Detected (NotDetected); Parainfluenza Virus 3 PCR Not Detected (NotDetected); Parainfluenza Virus 4 PCR Not Detected (NotDetected); Respiratory Syncytial VirusPCR Not Detected (NotDetected); Rhinovirus/Enterovirus PCR Not Detected (NotDetected)
[2024-12-17] MEDS: POTASSIUM CHLORIDE CRTAB 20 MEQ TABCR PO STA (16:31)
--- NOTE | 2024-12-17 16:45 | CT Scan Report ---
INDICATION: Abdominal pain. COMPARISON: CT from 01/05/2023. TECHNIQUE: Axial CT images of the abdomen and pelvis were obtained following IV contrast administration. Coronal and sagittal reformations were reviewed. FINDINGS: Patchy infiltrate in the left lower lobe and to lesser degree the right lower lobe. The liver, gallbladder, spleen, pancreas and adrenal glands appear unremarkable. No hydronephrosis. No evidence of bowel obstruction/colitis/appendicitis. No free air. No drainable fluid collection. The urinary bladder appears unremarkable. Phleboliths in the pelvis. IUD in the uterus. No acute osseous abnormality evident. IMPRESSION: 1. No acute process in the abdomen or pelvis. 2. Findings concerning for bilateral lower lobe pneumonia. Electronically signed by Priyank Ceja 12-17-2024 4:45 PM
--- NOTE | 2024-12-17 17:58 | Ultrasound Report ---
US Pelvis COMPARISON: None. HISTORY: Pelvic pain TECHNIQUE: The pelvis was scanned in standard fashion with a transabdominal and transvaginal transducer(s) using both harper scale and color Doppler techniques. FINDINGS: The uterus measures 7.3 x 3.4 x 4.8 cm , and there is no evidence of a focal fibroid. The endometrium is within normal limits containing an IUD. There is no free fluid in the pelvis. There are small nabothian cysts. The right ovary measures 1.8 x 3.0 x 2.2 cm and the left ovary measures 1.1 x 3.3 x 1.7 cm . There is no adnexal mass. There is normal blood flow to the ovaries. IMPRESSION: Normal pelvic ultrasound. An IUD is in place. Electronically signed by Hayder Mata 12-17-2024 5:58 PM
[2024-12-17] MEDS: SODIUM CHLORIDE 0.9% 1,000 ML IV ONE (18:26)
--- NOTE | 2024-12-17 19:51 | History & Physical Report ---
Date of Service December 17, 2024 Assessment & Plan (1) Influenza A: Plan: Tamiflu 75 mg PO BID Isolation precautions (2) Hypoxia: Plan: No respiratory distress Aim O2 sats > 90%, try to wean Incentive spirometer Flutter valve Sputum culture (3) Tobacco use: Plan: Nicotine patch 7 mg / 24 hours Plan VTE Prophyalxis - low risk Diet - low risk Disposition - admit to med/surg Admission and Anticipated Discharge Date Admission Date: December 17, 2024 History of Present Illness Chief Complaint: Flulike illness Primary Care Provider: Reynaldo Cooper PA-C Hannah Araujo is a 34-year-old female who presents to the ER with abdominal pain, nausea, vomiting, lethargic, productive cough, chills and shortness of breath. Symptoms started 3 to 4 days ago. Currently she does not have abdominal pain. Ongoing nausea. No change in bowels. No urinary symptoms. No objective fevers. She generally felt like she was dying. She smokes half pack of cigarettes a day. Allergies Allergy/AdvReac Type Severity Reaction Status Date / Time buprenorphine [From Suboxone] Allergy Severe Anaphylaxis Verified 09/15/23 14:54 naloxone Allergy Severe Anaphylaxis Verified 09/15/23 14:54 latex Allergy Intermediate Rash Verified 09/15/23 14:54 Home Medications Medication Instructions Recorded Confirmed Type buprenorphine HCl 8 mg sublingual 8 mg sublingual BID 03/02/19 12/17/24 History tablet Medical Marijuana 1 dose inhalation TID PRN PER PT 03/18/22 12/17/24 History " NEEDED". acetone (urine) test (Ketone Urine #50 ea 09/15/23 12/17/24 Rx Test strips) blood sugar diagnostic (OneTouch #150 ea 09/15/23 12/17/24 Rx Verio test strips) blood-glucose meter (OneTouch #1 ea 09/15/23 12/17/24 Rx Verio Reflect Meter) lancets 33 gauge (OneTouch Delica #150 ea 09/15/23 12/17/24 Rx Plus Lancet) Past Med/Surg History Problem List (Updated 12/17/24 @ 18:22 by OTILIA Drake) Tobacco use Hypoxia (Acute) Viral pneumonia (Acute) Influenza A (Acute) Abdominal pain (Acute) Gestational diabetes Need for rhogam due to Rh negative mother Drug use affecting with history of ectopic , antepartum Tobacco smoking affecting Cellulitis and abscess of face (Acute) Tobacco abuse Hypokalemia Encounter for change or removal of drains 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 Pt reported h/o abuse of cocaine, xanax, marijuana, heroin. now sober x 1 year Missed Medical History History of COVID-19 slight residual cough since having COVID 08/19/23 GERD (gastroesophageal reflux disease) controlled, stable per pt Hypoglycemia intermittent history, last noted in 2019 per EMR and patient OCD (obsessive compulsive disorder) Bipolar disorder History of seizures last seizure at age 20 - believes r/t medications - does not follow w/ neuro Anxiety and depression Anemia Surgical History S/P unilateral salpingo-oophorectomy Right H/O dilation and curettage History of incision and drainage (07/23/21) Incision and Drainage Submental Infection, Debridement of Necrotic Bone Left Jaw Dr. Ramos 07-23-2021 Grade 1 view, glidescope 3, ETT 7. Status post correction of deviated nasal septum Status post excision of lipoma as a child - scalp History of bunionectomy Rt History of mandibular surgery History of wisdom tooth extraction History of tonsillectomy Family History Mother Family history of diabetes mellitus Cervical cancer Grandmother (Maternal) Family history of diabetes mellitus Grandfather (Maternal) Family history of diabetes mellitus Denies family history of Ovarian cancer Bipolar disorder Colorectal cancer Social History Smoking Status: Current every day smoker Tobacco Type: Cigarettes packs per day: 0.5; Cigarettes Per Day: 20; Second Hand Exposure: Yes; Do You Dip or Chew Tobacco: No; Hx Alcohol Use: No Hx Substance Use: Yes Last Used Substance: Days (ago) Last Used Substance Other:: has hx of crack/cocaine/heroin, currently uses medical marijuana Preferred Language: Romanian Communication Ability: Effective Visual Impairment: No Limitations Supervisor Taping Required: No Beliefs That Will Affect Care: None marital status: Single marital status details: Clementina Gomez (36) [phone] Current Living Situation: Spouse Current Living Situation Comment: lives w/ fiance, dog, rabbit current occupational status: employed current occupation: [employer] Other Information That Helps Us Care for You: No Feels Safe at Home: Yes Safety Concerns: Feels Safe At This Time Assistive Devices: Denture - Upper and Denture - Lower Review of Systems Review of Systems: All systems reviewed & are unremarkable except as noted in HPI & below Physical Exam Constitutional: well developed; + not well nourished and no acute distress ENMT: external ear and nose normal, oropharynx normal Respiratory: normal respiratory effort Auscultation: + crackles (Bibasal); breath sounds present, no diminished lung sounds, no rhonchi and no wheezes Cardiovascular: RRR, no murmur, no edema Gastrointestinal (Abdomen): normal bowel sounds, soft, nontender, no hepatosplenomegaly Musculoskeletal: no cyanosis or clubbing, extremities motor strength 5/5 Skin: no rashes, warm and dry Neurologic: moves all extremities and awake; not confused Psychiatric: A+Ox3, euthymic affect Results & Data Results & Data Vital Signs (Past 12 Hours) Vital Signs Temp Pulse Pulse Resp BP BP Pulse Ox 12/17/24 19:11 101 H 22 118/84 97 12/17/24 18:24 37.9 C H 86 18 114/75 95 12/17/24 17:09 90 20 95 12/17/24 17:07 89 20 88 L 12/17/24 16:51 93 H 22 90 12/17/24 16:48 87 22 125/85 88 L 12/17/24 16:38 98 H 20 105/73 90 12/17/24 15:41 95 H 15 92 12/17/24 15:38 94 H 20 89 L 12/17/24 14:56 97 H 18 125/85 94 12/17/24 14:53 99 H 12/17/24 14:39 37.7 C H 111 H 27 H 144/84 H 93 O2 Del Method O2 Flow Rate 12/17/24 19:11 Nasal Cannula 2 12/17/24 18:24 Nasal Cannula 2 12/17/24 17:09 Nasal Cannula 2 12/17/24 17:07 Room Air 12/17/24 16:51 12/17/24 16:48 12/17/24 16:38 Room Air 12/17/24 15:41 Nasal Cannula 2 12/17/24 15:38 Room Air 12/17/24 14:56 Room Air 12/17/24 14:53 12/17/24 14:39 Room Air Laboratory Results Abnormal lab results 12/17/24 Range/Units 14:54 RBC 3.93 L (4.20-5.40) M/uL Hgb 11.4 L (12.0-16.0) g/dl Hct 34.0 L (37.0-47.0) % Plt Count 128 L (130-400) K/uL Lymph # (Auto) 0.56 L (1.20-3.40) K/uL Sodium 135 L (136-145) mmol/L Potassium 3.0 L (3.5-5.1) mmol/L Creatinine 0.57 L (0.6-1.2) mg/dl Glucose 112 H (70-99(Fasting)) mg/dl AST 84 H (13-39) U/L ALT 60 H (7-52) U/L Lipase 9 L (11-82) U/L Urine Protein Trace H (Negative) Urine Ketones 3+ H (Negative) Urine Blood 2+ H (Negative) Urine RBC (Auto) 3-5 H (0-2) /hpf Influenza A (H3) PCR DETECTED A (NotDetected) Diagnostic Findings Abnormal lab results 12/17/24 Range/Units 14:54 RBC 3.93 L (4.20-5.40) M/uL Hgb 11.4 L (12.0-16.0) g/dl Hct 34.0 L (37.0-47.0) % Plt Count 128 L (130-400) K/uL Lymph # (Auto) 0.56 L (1.20-3.40) K/uL Sodium 135 L (136-145) mmol/L Potassium 3.0 L (3.5-5.1) mmol/L Creatinine 0.57 L (0.6-1.2) mg/dl Glucose 112 H (70-99(Fasting)) mg/dl AST 84 H (13-39) U/L ALT 60 H (7-52) U/L Lipase 9 L (11-82) U/L Urine Protein Trace H (Negative) Urine Ketones 3+ H (Negative) Urine Blood 2+ H (Negative) Urine RBC (Auto) 3-5 H (0-2) /hpf Influenza A (H3) PCR DETECTED A (NotDetected) Medications Administered ER medications given: Normal saline 1 L bolus Ondansetron 4 mg IV Acetaminophen 1000 mg IV Potassium chloride 40 mEq p.o. Normal saline 1 L bolus Code Status & VTE Plan Code Status Full VTE Prophylaxis Plan VTE Prophylaxis will be ordered: Yes PG Care Time/CCT Total # of Minutes Spent Total Time Spent with Patient: Total time spent is greater than 50% in coordination of care (as documented) at patient's floor/unit and/or counseling patient: Coding Level of Care Code 57638 INT INP/OBS CARE 3/75MIN Diagnoses Influenza A J10.1 Hypoxia R09.02 Tobacco use Z72.0
[2024-12-17 21:11] VITALS: RESP 18
[2024-12-17] MEDS: NICOTINE 7 MG/24 HR TDSY TD SCH (21:45)
[2024-12-17] MEDS: buprenorphine HCL 8 MG SUBL SL SCH (21:45)
[2024-12-17] MEDS: OSELTAMIVIR PHOSPHATE 75 MG CAP PO SCH (21:45)
--- NOTE | 2024-12-18 01:58 | XRay Report ---
EXAM: XR chest 2V PA/lateral CLINICAL HISTORY: pna TECHNIQUE: X-ray images of the chest were obtained in posteroanterior (PA) and lateral projections. COMPARISON: 01/05/2023 and 12/17/2024 CT (lower chest cuts) FINDINGS: Pulmonary Parenchyma: Suspected faint right mid-zone opacity. Prominent central bronchovascular markings with peribronchial thickening. Lower zone nodular opacities are appreciated on the lateral view. No pleural effusion or pleural thickening. Heart and Mediastinum: Heart size and shape are normal. No mediastinal widening or masses. Bony Thorax: The bony thorax appears intact without fractures or deformities. Soft Tissues: Soft tissues overlying the chest wall are unremarkable. IMPRESSION: 1. Lower zone nodular opacities, appreciated on the lateral view only, are likely related to left lower lobe airspace opacities on the CT scan done on the same day. Suspicious of pneumonic infiltrations. Clinical correlation is advised. 2. Suspected right mid-zone faint opacity. Could be exaggerated due to overlying soft tissue shadows. Clinical correlation is advised. (New finding) Electronically signed by Israel Araujo 12-18-2024 01:58 AM
[2024-12-18] MEDS: ONDANSETRON INJ 2 MG/ML 2 ML VIAL IV PRN (03:23)
[2024-12-18] MEDS: ACETAMINOPHEN 325 MG TAB PO PRN (04:10)
[2024-12-18 07:17] VITALS: BP 96/59; PULSE 84; TEMP 99.7; O2SAT 92
[2024-12-18] MEDS: POTASSIUM CHLORIDE CRTAB 20 MEQ TABCR PO ONE (12:35)
--- NOTE | 2024-12-18 19:05 | Discharge Summary ---
Discharge Summary Date of Service December 18, 2024 Principal Dx & Hospital Course #1 = Principal Diagnosis (1) Influenza A: influenza A with viral pneumonia. No respiratory distress, O2 sats 88% on room air in ED therefore admitted she was vaccinated this fall influenza symptoms improved overnight she is able to eat and drink breathing improved, had adequate oxygenation on room air, and she was able to discharge home Tamiflu 75 mg PO BID added 20 mg prednisone x 5 days for some mild bronchospasm, no history of asthma or COPD acetaminophen, dextromethorphan/guaifenesin (2) Hypoxia: (3) Tobacco use: counseled cessation Plan opioid use disordersober 1 year continue buprenorphine Admission HPI Per Admitting Provider Hannah Araujo is a 34-year-old female who presents to the ER with abdominal pain, nausea, vomiting, lethargic, productive cough, chills and shortness of breath. Symptoms started 3 to 4 days ago. Currently she does not have abdominal pain. Ongoing nausea. No change in bowels. No urinary symptoms. No objective fevers. She generally felt like she was dying. She smokes half pack of cigarettes a day. Discharge Plan Discharge Items Patient Disposition: Home - Self-Care Reason For Visit: INFLUENZA A,HYPOXIA Discharge Diagnosis: Influenza A Activity: Resume your previous activity Non-emergency contact: Primary Care Provider Call non-emergency contact if: you have any medication questions and your symptoms worsen Follow-up/Referrals: Reynaldo Cooper PA-C [Primary Care Provider] - (PATIENT TO CALL PCP AND HAVE A HOSPITAL FOLLOW UP VISIT IN 7-10 DAYS ) Diet: Regular Addtl Attending Provider Instructions: You were treated for influenza A, which caused some viral pneumonia This caused mildly low oxygen take tamiflu until it runs out I prescribed some ant-nausea medicine as needed you can use cough syrup with guaifenesin - dextromethorphan as directed to help loosen mucus and suppress cough (robitussin and other brands) try to stop smoking! nicotine replacement is available over the counter. that will reduce your risk of pneumonias, chronic lung disease, heart attack/stroke, and lung cancer It was a pleasure taking care of you in the hospital, Teressa Valentine MD Pending Studies at Discharge: No Stand-Alone Forms: My [facility], Smoking Cessation Medications and DC Order Prescriptions: New oseltamivir [Tamiflu] 75 mg Capsule 75 mg PO BID Qty: 8 0RF ondansetron 4 mg tablet,disintegrating 4 mg PO Q6H PRN (Reason: nausea and vomiting) Qty: 14 0RF Continued buprenorphine HCl 8 mg Tablet, Sublingual 8 mg SUBLINGUAL BID Medical Marijuana 1 dose inhalation TID PRN (Reason: PER PT " NEEDED".) Rx Instructions: SMOKES Discontinued (DME) Ketone Urine Test Strip See Rx Instructions .MEDSUPPLY Qty: 50 2RF Rx Instructions: As directed to check ketones in urine once a day in the morning (DME) OneTouch Verio test strips Strip See Rx Instructions .MEDSUPPLY Qty: 150 2RF Rx Instructions: check blood sugars 4 times a day (DME) blood-glucose meter [OneTouch Verio Reflect Meter] Misc See Rx Instructions miscellaneous .MEDSUPPLY Qty: 1 0RF Rx Instructions: As directed (DME) lancets [OneTouch Delica Plus Lancet] 33 gauge misc See Rx Instructions .MEDSUPPLY Qty: 150 2RF Rx Instructions: As directed check blood sugars 4 times a day Discharge Orders: Discharge Order (Routine); Ordered 12/18/24 Ordered By: Teressa Tolentino/Other Patient Handouts: ED Influenza (Adult) Admission Data Admit Date/Time: 12/17/24 18:18 Attending Provider: Teressa Valentine Admit Provider: Roman Nettles Primary Care Provider: Reynaldo Cooper Other Providers: Roman Nettles Other Interventions: Discharge Summary Assessment (RN) Last Done: 12/18/24 14:35 Hospital Stay Data Consultations 12/17/24 18:17 ED Decision to Admit Stat Diagnostic Imagining Performed 12/17/24 15:06 CT Abd and Pelvis [CT abd pelvis IV con only] Stat 12/17/24 15:08 US pelvic complete Stat US transvaginal Stat Pending Results Patient Have Any Pending Studies at Discharge: No Discharge Instructions Given to Patient (Per Discharging Provider) You were treated for influenza A, which caused some viral pneumonia This caused mildly low oxygen take tamiflu until it runs out I prescribed some ant-nausea medicine as needed you can use cough syrup with guaifenesin - dextromethorphan as directed to help loosen mucus and suppress cough (robitussin and other brands) try to stop smoking! nicotine replacement is available over the counter. that will reduce your risk of pneumonias, chronic lung disease, heart attack/stroke, and lung cancer It was a pleasure taking care of you in the hospital, Teressa Valentine MD Total Time Total Time Spent Total Time Spent (In Minutes): <30 Coding Level of Care Code 65076 IN/OBS DISCH 30 MIN/LESS Diagnoses Influenza A J10.1 Hypoxia R09.02 Tobacco use Z72.0
== END 2024-12-18 15:33 | disposition home or self-care (01) | DRG 195 ==
LOC: ED 14:28 → 3E 18:18 → SUATTDRO 18:18 → INTOOBSV 18:18 → 3E 20:30